=== PATIENT | female | born 1950 | race Caucasian/White ===

== ENCOUNTER → 2017-07-31 | Outpatient (CLI) | payer MEDICARE, OTHER ==
[~2017-07-31] MED LIST: ASPIRIN325 PO; CALCIUM 600 +1 EA11 PO; CENTRUM SILVER1 EAC4 PO; COLON HEALTH PROBIOT; FISH OIL 1,001000 M1 PO; LISINOPRIL-HCT1 EAC1 PO; METOPROLOL TAR100 MG PO; NORVASC2.5 MG PO; NORVASC5 M1 PO; PAXIL10 MG; POTASSIUM99 M1 PO; VITAMIN C500 M1 PO
== END ==
LOC: M.RAD 12:06
DX: Z12.31 Encounter for screening mammogram for malignant neoplasm of breast (principal); I10 Essential (primary) hypertension

== ENCOUNTER → 2017-08-08 | Outpatient (CLI) | payer MEDICARE, OTHER | LOC: M.ULTRA 12:56 | DX: N60.01 Solitary cyst of right breast (principal) ==

== ENCOUNTER → 2018-10-08 | Outpatient (CLI) | payer MEDICARE, OTHER | LOC: M.RAD 09-16 13:16 | DX: Z13.820 Encounter for screening for osteoporosis (principal); Z12.31 Encounter for screening mammogram for malignant neoplasm of breast; E28.39 Other primary ovarian failure; F17.290 Nicotine dependence, other tobacco product, uncomplicated ==

== ENCOUNTER → 2020-04-27 | Outpatient (CLI) | payer MEDICARE, OTHER | LOC: M.RAD 13:14 | PROVIDERS: ATTEND Hospitalist | DX: Z12.31 Encounter for screening mammogram for malignant neoplasm of breast (principal) ==

== ENCOUNTER 2020-08-02 09:47 | Inpatient (IN) | payer MEDICARE, OTHER ==
[~2020-08-02] VITALS: Ht 167.6 cm; Wt 112.9 kg
[~2020-08-02 09:47] MED LIST changes: -METOPROLOL TAR100 MG PO; +ST. JOSEPH ASPI81 MG PO; +TOPROL XL100 MG PO
[2020-08-02 09:52] VITALS: BP 174/86
[2020-08-02] MEDS ORDERED: METFORMIN HCL500 MG PO (09:59)
[2020-08-02] MEDS ORDERED: CRESTOR5 MG PO (09:59)
[2020-08-02 10:26] LABS: ABSOLUTE BASOPHILS 0.1 thou/uL (0.0-0.2); ABSOLUTE EOSINOPHILS 0.1 thou/uL (0.0-0.7); ABSOLUTE LYMPHOCYTES 1.6 thou/uL (0.8-5.3); ABSOLUTE MONOCYTES 0.4 thou/uL (0.0-1.2); ABSOLUTE NEUTROPHILS 6.1 thou/uL (1.6-8.1); BASOPHILS 0.8 %; EOSINOPHILS 1.7 %; HEMATOCRIT 43.2 % (37.0-47.0); HEMOGLOBIN 14.3 gm/dL (12.0-15.0); LYMPHOCYTES 19.2 %; MCH 28.3 pg (26.0-34.0); MCV 85.6 fL (80.0-100.0); MONOCYTES 5.1 %; MPV 7.5 fl. (7.2-11.1); NUCLEATED RBCS 0 /100WBC; PLATELET COUNT* 300 thou/uL (150-400); POLYS 73.2 %; RBC 5.04 mil/uL (4.20-5.00); RDW-CV 13.9 % (10.5-14.5); WBC 8.4 thou/uL (4.0-11.0)
[2020-08-02 10:36] LABS: CALCIUM 9.3 mg/dL (8.5-10.1); CREATININE 0.8 mg/dL (0.6-1.3)
[2020-08-02 10:44] LABS: APTT 25.5 Seconds (25.0-31.3); PROTIME 10.6 Seconds (9.20-11.50)
[2020-08-02 10:49] LABS: ALBUMIN 3.4 g/dL (3.4-5.0); MAGNESIUM 1.8 mg/dL (1.8-2.4); TOTAL BILIRUBIN 0.6 mg/dL (<0.1-1.0); TOTAL PROTEIN 8.6 g/dL (6.4-8.2)
[2020-08-02] MEDS ORDERED: CRANBERRY 6,001 EACH PO (13:36)
[2020-08-02] MEDS ORDERED: CALCIUM 500 +1 EACH PO (13:36)
[2020-08-02] MEDS ORDERED: ACETAMINOPHEN500 M1 PO (13:37)
[2020-08-02] MEDS ORDERED: TUMS200 MG PO (13:40)
[2020-08-02 14:21] VITALS: BP 173/70
[2020-08-02 15:03] VITALS: BP 185/74
[2020-08-02 15:24] VITALS: BP 169/71
--- NOTE | 2020-08-02 16:23 | 2DMMODE ---
[place] [id number] 2 D/M-MODE ECHOCARDIOGRAM Name: JOHNSON MONTEROLOTRADHA HOLDER Room: [address] IN [facility]#: [id number] Admission: 08/02/20 Attend Phys: Andres Lowery Discharge: Date of : 54 Date of Service: 08/02/20 1623 Report #: [id number] THIS REPORT FOR: cc: Vanna Smith MD, Jayne Lora MD Liston, Michael J. MD [facility] ~ APPROVED REPORT Study performed: 08/02/2020 15:52:17 EXAM: Comprehensive 2D, Doppler, and color-flow Echocardiogram Patient Location: In-Patient Room #: 228 Status: routine BSA: 2.12 HR: 83 bpm BP: 185/74 mmHg Rhythm: NSR Other Information Study Quality: Good Indications Dyspnea 2D Dimensions IVSd: 13.62 (7-11mm) LVOT Diam: 19.77 (18-24mm) LVDd: 40.80 mm PWd: 13.51 (7-11mm) Ascending Ao: 33.63 (22-36mm) LVDs: 18.88 (25-40mm) Aortic Root: 36.14 mm Volumes Left Atrial Volume (Systole) LA ESV Index: 27.90 mL/m2 Aortic Valve AoV Peak Usman.: 1.55 m/s AO Peak Gr.: 9.64 mmHg LVOT Max P.22 mmHg AO Mean Gr.: 6.22 mmHg LVOT Mean P.18 mmHg LVOT Max V: 1.52 m/s AO V2 VTI: 32.71 cm LVOT Mean V: 1.07 m/s SETH (VTI): 3.26 cm2 LVOT V1 VTI: 34.73 [place] [id number] 2 D/M-MODE ECHOCARDIOGRAM Name: PEARL MONTERO Room: [address] IN ..#: [id number] Admission: 08/02/20 Attend Phys: Andres Lowery Discharge: Date of : 54 Date of Service: 08/02/20 1623 Report #: [id number] Mitral Valve E/A Ratio: 0.64 MV Decel. Time: 163.68 ms MV E Max Usman.: 0.99 m/s MV PHT: 47.47 ms MVA (PHT): 4.63 cm2 TDI E/Lateral E': 9.00 Lateral E' Usman.: 0.11 m/s Pulmonary Valve PV Peak Usman.: 1.01 m/s PV Peak Gr.: 4.07 mmHg Left Ventricle The left ventricle is normal size. There is normal LV segmental wall motion. Mild concentric left ventricular hypertrophy. Left ventricular systolic function is normal. LVEF is 65-70%. Grade I - abnormal relaxation pattern. Right Ventricle The right ventricle is normal size. The right ventricular systolic function is normal. Atria Left atrium is mildly dilated. The right atrium size is normal. Aortic Valve The aortic valve is normal in structure. No aortic regurgitation is present. There is no aortic valvular stenosis. Mitral Valve There is mitral annular calcification. There is no mitral valve regurgitation noted. No evidence of mitral valve stenosis. Tricuspid Valve The tricuspid valve is normal in structure. Trace tricuspid regurgitation. Unable to assess PA pressure. Pulmonic Valve The pulmonary valve is normal in structure. There is no pulmonic valvular regurgitation. Great Vessels The aortic root is normal in size. IVC [place] [id number] 2 D/M-MODE ECHOCARDIOGRAM Name: PEARL MONTERO Room: [address] IN [facility]#: [id number] Admission: 08/02/20 Attend Phys: Andres Lowery Discharge: Date of : 54 Date of Service: 08/02/20 1623 Report #: [id number] collapses >50% with inspiration. Pericardium There is no pericardial effusion. <Conclusion> The left ventricle is normal size. Mild concentric left ventricular hypertrophy. Left ventricular systolic function is normal. LVEF is 65-70%. Grade I - abnormal relaxation pattern. There is normal LV segmental wall motion. Left atrium is mildly dilated. Trace tricuspid regurgitation. IVC is normal in size and collapses >50% with inspiration. <ELECTRONICALLY SIGNED> By: Josue Rodriguez MD, FACC 08/02/20 1623 1623 1623 Josue Rodriguez MD, FACC /INF
[2020-08-02 17:08] VITALS: BP 176/77
--- NOTE | 2020-08-02 18:02 | NUR ---
PT ADMITTED TO ROOM 228 VIA CART FROM ED AT APPROXIMATELY 1430. REPORT RECEIVED FROM JONNY TINOCO. PT ORIENTED TO ROOM AND CALL LIGHT. ADMISSION ASSESSMENT AND HISTORY CHARTED. SEPSIS NEGATIVE. HOME MEDICATIONS RECONCILED. A&0X4, DENIES ANY PAIN AT THIS TIME. PT ON 4L NC SAT LOW 90'S. PT COMPLAINS OF SHORTNESS OF BREATH AT REST AND WITH EXERTION. PT UP AD ROWAN IN ROOM. AND SON AT BEDSIDE AND UPDATED ON CURRENT PLAN OF CARE. TRACING SR ON THE WEB PAGE DESIGNER. SPUTUM NEEDS TO BE OBTAINED. MEDS PER JUN. PT REPOSITIONS SELF. HOURLY ROUNDING OBSERVED. BED IN LOW POSITION. CALL LIGHT WITHIN REACH. WILL CONTINUE PLAN OF CARE.
[2020-08-02 20:00] VITALS: BP 150/92
[2020-08-03 00:45] VITALS: BP 142/74
[2020-08-03 04:37] LABS: HEMATOCRIT 43.5 % (37.0-47.0); HEMOGLOBIN 14.2 gm/dL (12.0-15.0); MCH 27.9 pg (26.0-34.0); MCHC 32.7 g/dL (28.0-37.0); MCV 85.4 fL (80.0-100.0); NUCLEATED RBCS 0 /100WBC; PLATELET COUNT* 333 thou/uL (150-400); RDW-CV 13.8 % (10.5-14.5); WBC 12.1 thou/uL (4.0-11.0)
[2020-08-03 04:57] LABS: ALBUMIN 3.3 g/dL (3.4-5.0); CALCIUM 9.8 mg/dL (8.5-10.1); CREATININE 0.9 mg/dL (0.6-1.3); MAGNESIUM 2.3 mg/dL (1.8-2.4); POTASSIUM 4.6 mmol/L (3.5-5.1); TOTAL BILIRUBIN 0.5 mg/dL (<0.1-1.0); TOTAL PROTEIN 7.6 g/dL (6.4-8.2)
[2020-08-03 05:46] VITALS: BP 181/77
[2020-08-03 07:07] LABS: ABSOLUTE LYMPHOCYTES 0.8 thou/uL (0.8-5.3); ABSOLUTE NEUTROPHILS 11.3 thou/uL (1.6-8.1); PLATELET ESTIMATE ADEQUATE
[2020-08-03 08:00] VITALS: BP 194/74
--- NOTE | 2020-08-03 10:54 | NUR ---
CM COMPLETED THE INITIAL ASSESSMENT TO DISCUSS HOME SITUATION AND D/C PLAN.PT LIVES HOME W/SPOUSE. PT HAS NO DMES. PT IS CURRENTLY ON 5L OF 02 NC. PT HAS NO HOME O2. PT IS ACTIVE AND INDEPENDENT WITH CARES. PT DENIES HX WITH HH AND SNF. CM TO CONT TO FOLLOW TO ASSESS IF THERE WILL BE ANY O2 NEEDS
[2020-08-03 12:33] VITALS: BP 145/65
[2020-08-03 12:54] LABS: CALCIUM 9.1 mg/dL (8.5-10.1); CREATININE 0.9 mg/dL (0.6-1.3); MAGNESIUM 2.5 mg/dL (1.8-2.4); POTASSIUM 3.7 mmol/L (3.5-5.1)
[2020-08-03 13:37] LABS: HEMOGLOBIN 15.4 gm/dL (12.0-15.0); MCH 28.1 pg (26.0-34.0); MCHC 32.7 g/dL (28.0-37.0); MPV 7.8 fl. (7.2-11.1); RBC 5.47 mil/uL (4.20-5.00); WBC 18.2 thou/uL (4.0-11.0)
[2020-08-03 13:57] LABS: CALCIUM 9.7 mg/dL (8.5-10.1); CREATININE 1.1 mg/dL (0.6-1.3); PHOSPHORUS* 3.4 mg/dL (2.5-4.9)
--- NOTE | 2020-08-03 14:11 | EKG ---
[place] [address] ELECTROCARDIOGRAM REPORT Name: PEARL MONTERO Room: [address] ADM IN .R.#: [id number] Admission: 08/02/20 Attend Phys: Andres Lowery Discharge: Date of : 54 Date of Service: 08/02/20 1003 Report #: [id number] THIS REPORT FOR: //name// [facility] ED Test Date: 2020-08-02 Test Time: 10:03:33 Pat Name: PEARL MONTERO Department: Room: [facility] Gender: F Campaign Coordinator: wilian : 1950 Requested By: Demar Moser Order Number: [id number] MD: Josue Rodriguez Measurements Intervals [place] Rate: 87 P: -22 CO: 208 QRS: -26 QRSD: 108 T: 45 QT: 394 QTc: 474 Interpretive Statements Sinus rhythm Borderline left axis deviation Probable anteroseptal infarct, old Compared to ECG 06/13/2014 19:02:29 Myocardial infarct finding now present Sinus tachycardia no longer present Electronically Signed On 08-03-2020 14:10:54 CDT by Josue Rodriguez [email or web address] <ELECTRONICALLY SIGNED> By: Josue Rodriguez MD, FACC 08/03/20 1410 1003 1003 Josue Rodriguez MD, FACC /EPI
--- NOTE | 2020-08-03 14:44 | CON ---
[address] [address] CONSULTATION Name: PEARL MONTERO Room: [address] IN M.R.#: [id number] Admission: 08/02/20 Attend Phys: Alan Fiore Discharge: Date of : 54 Report #: [id number] THIS REPORT FOR: cc: Vanna Smith MD, Jayne Lora MD Pervez, Adeel MD ~ DATE OF SERVICE: 08/02/2020 REQUESTING PHYSICIAN: Dr. Lowery. INDICATION FOR CONSULTATION: Shortness of breath. HISTORY OF PRESENT ILLNESS: This is a 70-year-old female who has an extensive history of smoking. She says it has been several years since she discontinued. She has not previously been diagnosed with COPD. The patient, however, does state that she has a longstanding history of nasal allergies and also does have a long-standing history of a dry cough. The patient said that she is here because since Sunday she has been having increasing shortness of breath. Shortness of breath is more on exertion, but present at rest as well. She has had an increase in cough, but there is not much sputum. There is no chest pain. She denies any upper respiratory complaints. She does have some swelling of lower extremities. She does not have calf pain. She is not complaining of heartburn at this time. She does say that she has disturbed sleep at night as well as sleepiness during the day. She usually sleeps on her sides. REVIEW OF SYSTEMS: She answers to the negative for 12 questions for review of systems except as mentioned above. PAST MEDICAL HISTORY: Allergic rhinitis, hypertension, hyperlipidemia. She has had Moderna COVID-19 vaccine. PAST SURGICAL HISTORY: Cervical polyp removed, tonsillectomy. SOCIAL HISTORY: Extensive history of smoking, has now discontinued. No known history of heavy alcohol use or illegal drug use. CURRENT MEDICATIONS: List in [employer] reviewed. HOME MEDICATIONS: List in [employer] reviewed. FAMILY HISTORY: No pertinent family history known at this time. PHYSICAL EXAMINATION: GENERAL: Alert, [place] [address] CONSULTATION Name: PEARL MONTERO Room: [address] IN [facility]#: [id number] Admission: 08/02/20 Attend Phys: Alan Fiore Discharge: Date of : 54 Report #: [id number] VITAL SIGNS: Has a pulse of 84 and a blood pressure elevated to 173/70, saturating 93%. She is on 4 liters nasal cannula, respiratory rate is mildly elevated to 20. She is afebrile with a temperature of 36.4. Body mass index is elevated to 37.1. HEENT: Head is normocephalic and atraumatic. Pupils are equal and reactive. There is no throat erythema. Airway is Mallampati 3. NECK: Does not show raised JVP, asymmetry, mass or palpable lymph nodes. CHEST: Symmetrical expansion on inspection and palpation. On auscultation, breath sounds are bilaterally equal, decreased, expirations are prolonged. I do not hear any added sounds. HEART: Regular, no murmur. ABDOMEN: Soft and nontender. EXTREMITIES: Lower extremities 1+ edema, no calf tenderness. There are varicose veins noted on the left leg. SKIN: Dry and intact. NEUROLOGICAL: Moves all extremities bilaterally equally and spontaneously with no focal deficit identified. LABORATORY DATA: The patient's CTA chest is reviewed. In summary, it does show a mass of about 5.8 cm sand at least 1 smaller nodule as well. I suspect there are some postobstructive infiltrates. There are no pulmonary emboli identified. The patient's lab work is in [employer] and this is reviewed including COVID-19 screen negative. ASSESSMENT AND PLAN: 1. Lung mass This is suspicious of a malignancy. Considering the patient's sodium is decreased small cell carcinoma of the lung is the first possibility to consider; however, there are certainly other etiologies as well. The primary service is already consulted Interventional Radiology for a CT-guided biopsy and agree with the same. 2. Acute hypoxemic respiratory failure. The patient is saturating 93% on 4 liters nasal cannula. She was 86% on room air earlier. Note that she has previously has not been on supplemental oxygen. We will continue to titrate oxygen. 3. Chronic obstructive pulmonary disease exacerbation. Solu-Medrol and nebulized bronchodilators. 4. Pulmonary infiltrates, I suspect that these may be postobstructive. I will start with ceftriaxone as well as azithromycin. Some cultures and serologies are also ordered. 5. Fluid overload/edema of lower extremity. D-dimer is not elevated. Therefore, thromboembolism appears unlikely. Also, there are no clots noted in the CTA chest. I will, however, do 2D echo. Since the patient received IV dye today, I did not order Lasix now; however, I will plan to order Lasix tomorrow if the BUN and creatinine remain stable. [address] [address] CONSULTATION Name: PEARL MONTERO Room: [address] IN M.R.#: [id number] Admission: 08/02/20 Attend Phys: Alan Fiore Discharge: Date of : 54 Report #: [id number] 6. Hypersomnia/sleep disturbances. I suspect that the patient has underlying obstructive sleep apnea. Evaluation is deferred for now. Plan outpatient sleep study later. 7. Hyperglycemia. Initial blood glucose before she got steroids was elevated to 186, therefore, I will put on an insulin sliding scale. 8. Past medical history of hypertension. 9. Deep vein thrombosis prophylaxis. We will plan is to start a prophylactic dose Lovenox tomorrow. 10. Clostridium difficile prophylaxis, Lactinex. 11. Gastrointestinal prophylaxis. I will give her Protonix while she is on high dose steroid. Thanks for this consultation. <ELECTRONICALLY SIGNED> By: Seth Geronimo MD 08/03/20 1444 1505 [id number] Geronimo MD /nt
[2020-08-03 16:46] VITALS: BP 140/67
--- NOTE | 2020-08-03 18:49 | NUR ---
ASSUMED CARE OF PT AT 0730. PT A&0X4, DENIES ANY PAIN THROUGHOUT SHIFT. PT ON 7L HIGH FLOW NC UPON INITIAL ASSESSMENT- TITRATED TO 4L HIGH FLOW NC SAT MID 90'S. PT HAS SHORTNESS OF BREATH AT REST AND WITH EXERTION. PT UP WITH 1 ASSIST TO BATHROOM. PT HAD CT ABD/PELVIS TODAY-REFER TO RESULTS. TRACING SR/ST ON THE NEGATIVE NOTCHER. ASPIRIN DISCONTINUED FOR BIOPSY. PT AND SON AT BEDSIDE THROUGHOUT SHIFT AND UPDATED ON CURRENT PLAN OF CARE. AM ASSESSMENT CHARTED. MEDICATIONS PER JUN. PT REPOSITIONS SELF. HOURLY ROUNDING OBSERVED. BED IN LOW POSITION. CALL LIGHT WITHIN REACH. WILL CONTINUE PLAN OF CARE.
[2020-08-03 20:00] VITALS: BP 144/71
[2020-08-04 00:03] VITALS: BP 134/81
[2020-08-04 05:19] VITALS: BP 162/68
[2020-08-04 08:00] VITALS: BP 170/76
--- NOTE | 2020-08-04 11:27 | CON ---
[address] [address] CONSULTATION Name: PEARL MONTERO Room: [address] IN .R.#: [id number] Admission: 08/02/20 Attend Phys: Alan Fiore Discharge: Date of : 54 Report #: [id number] THIS REPORT FOR: cc: Vanna Smith MD, Jayne Lora MD Elia, Manana MD ~ DATE OF SERVICE: 08/03/2020 REASON FOR CONSULTATION: Lung mass. REQUESTING PHYSICIAN: Andres Lowery DO HISTORY OF PRESENT ILLNESS: The patient is a pleasant 70-year-old female who is admitted to the hospital with worsening shortness of breath. She states that she started having shortness of breath several days ago. She says that she over exerted herself while mowing the yard. She tried to "rest" on the weekend, but shortness of breath got worse. She presented to Emergency Room with worsening shortness of breath. She had imaging studies done. These showed lung mass. Oncology consult is requested. She is feeling somewhat better. She does not have complaints of fever or chills. Denies hemoptysis. Denies weight loss. Denies headaches. Does not have nausea or vomiting. PAST MEDICAL HISTORY: Significant for: 1. Hypertension. 2. Hyperlipidemia. ALLERGIES: She has seasonal allergies. SOCIAL HISTORY: She has a history of smoking, but quit smoking few years ago. She does not drink alcohol excessively. She lives with her . FAMILY HISTORY: Noncontributory. REVIEW OF SYSTEMS: See above. Other systems reviewed and are negative. Pertinent positives and negatives are listed in HPI. PHYSICAL EXAMINATION: GENERAL: Reveals mildly overweight woman, not in any acute distress. VITAL SIGNS: Blood pressure 194/74, heart rate is 110, temperature 98.4, respirations 22. NECK: Supple. There is no supraclavicular or axillary lymphadenopathy. HEART: Normal S1, S2. LUNGS: Clear. No wheezing. EXTREMITIES: Lower extremities, [place] [address] CONSULTATION Name: PEARL MONTERO Room: [address] IN [facility]#: [id number] Admission: 08/02/20 Attend Phys: Alan Fiore Discharge: Date of : 54 Report #: [id number] SKIN: Does not reveal any rash. MENTAL STATUS: Alert, oriented x 3. LABORATORY DATA: White count 12.1, hemoglobin 14.2, platelets 333, MCV 85.4. Sodium 126, potassium 4.6, chloride 88, BUN 21, bicarbonate 31, creatinine 0.5, total bilirubin 0.4. LFTs normal. CT of chest reviewed, shows large right hilar mass measuring 5.8 x 4.6 x 4.5 cm. This encases the right apical pulmonary artery, which has severely narrowed and also created mass effect until superior vena cava. There is a 6 mm satellite nodule in the anterior right upper lobe. ASSESSMENT AND PLAN: 1. Lung mass. This is concerning for malignancy. Small cell lung cancer is not excluded. I would recommend to proceed with biopsy as soon as possible. The mass is encasing the pulmonary artery and narrowing superior vena cava. If the patient has small cell lung cancer, we will start treatment immediately. 2. Hyponatremia, possibly syndrome of inappropriate antidiuretic hormone. Plan to order urine sodium and osmolality. 3. Hypertension. Defer care to hospitalist. Thank you very much for allowing me to participate in the care of this patient. <ELECTRONICALLY SIGNED> By: Heather Sierra MD 08/04/20 1127 [id number] [id number] Sierra MD /nt
[2020-08-04 11:56] LABS: ABSOLUTE LYMPHOCYTES 0.9 thou/uL (0.8-5.3); ABSOLUTE MONOCYTES 0.6 thou/uL (0.0-1.2); ABSOLUTE NEUTROPHILS 16.1 thou/uL (1.6-8.1); BASOPHILS 0.1 %; HEMATOCRIT 41.6 % (37.0-47.0); HEMOGLOBIN 13.5 gm/dL (12.0-15.0); LYMPHOCYTES 4.9 %; MCHC 32.3 g/dL (28.0-37.0); MCV 86.6 fL (80.0-100.0); MONOCYTES 3.2 %; MPV 7.5 fl. (7.2-11.1); NUCLEATED RBCS 0 /100WBC; PLATELET COUNT* 390 thou/uL (150-400); POLYS 91.8 %; RDW-CV 14.3 % (10.5-14.5); WBC 17.5 thou/uL (4.0-11.0)
[2020-08-04 12:05] LABS: CREATININE 1.2 mg/dL (0.6-1.3); MAGNESIUM 2.3 mg/dL (1.8-2.4); POTASSIUM 4.3 mmol/L (3.5-5.1)
[2020-08-04 12:40] VITALS: BP 146/65
[2020-08-04 13:46] LABS: ALBUMIN 3.3 g/dL (3.4-5.0); CREATININE 1.2 mg/dL (0.6-1.3); POTASSIUM 4.3 mmol/L (3.5-5.1); TOTAL BILIRUBIN 0.3 mg/dL (<0.1-1.0); TOTAL PROTEIN 7.7 g/dL (6.4-8.2)
--- NOTE | 2020-08-04 15:22 | NUR ---
PLAN OF CARE: PLAN FOR PT TO D/C POSSIBLY TOMORROW OR SUNDAY. PT CURRENTLY ON 5L O2 AND WILL LIKELY NEED HOME OXYGEN AT D/C. NO OTHER CM D/C PLANNING NEEDS ANTICIPATED. CM WILL REMAIN AVAILABLE TO ASSIST AND FOLLOW NEEDED.
[2020-08-04 16:13] VITALS: BP 178/71
[2020-08-04 20:00] VITALS: BP 169/75
[2020-08-05 04:13] LABS: ABSOLUTE LYMPHOCYTES 0.8 thou/uL (0.8-5.3); ABSOLUTE MONOCYTES 0.5 thou/uL (0.0-1.2); ABSOLUTE NEUTROPHILS 14.6 thou/uL (1.6-8.1); BASOPHILS 0.2 %; HEMATOCRIT 42.5 % (37.0-47.0); HEMOGLOBIN 13.5 gm/dL (12.0-15.0); LYMPHOCYTES 4.8 %; MCH 27.6 pg (26.0-34.0); MCHC 31.7 g/dL (28.0-37.0); MCV 87.1 fL (80.0-100.0); MONOCYTES 2.9 %; MPV 7.9 fl. (7.2-11.1); NUCLEATED RBCS 0 /100WBC; PLATELET COUNT* 370 thou/uL (150-400); POLYS 92.1 %; RBC 4.87 mil/uL (4.20-5.00); RDW-CV 14.3 % (10.5-14.5); WBC 15.8 thou/uL (4.0-11.0)
[2020-08-05 04:29] LABS: ALBUMIN 3.2 g/dL (3.4-5.0); CALCIUM 9.1 mg/dL (8.5-10.1); CREATININE 0.9 mg/dL (0.6-1.3); MAGNESIUM 2.6 mg/dL (1.8-2.4); POTASSIUM 5.1 mmol/L (3.5-5.1); TOTAL BILIRUBIN 0.3 mg/dL (<0.1-1.0); TOTAL PROTEIN 7.1 g/dL (6.4-8.2)
[2020-08-05 04:52] VITALS: BP 157/62
[2020-08-05 08:00] VITALS: BP 107/69
[2020-08-05 12:09] VITALS: BP 166/69
--- NOTE | 2020-08-05 14:13 | NUR ---
PLAN OF CARE: PT REMAINS TELE STATUS AT THIS TIME. PT CURRENTLY ON 4L O2, AND PLAN TO WEAN PT O2 MUCH POSSIBLE. PT WILL LIKELY NEED HOME O2 AT D/C. CM WILL REMAIN AVAILABLE TO ASSIST AND FOLLOW NEEDED.
[2020-08-05 17:10] VITALS: BP 128/57
[2020-08-05 19:30] VITALS: BP 162/61
[2020-08-06 03:54] LABS: ABSOLUTE LYMPHOCYTES 0.7 thou/uL (0.8-5.3); ABSOLUTE MONOCYTES 0.5 thou/uL (0.0-1.2); ABSOLUTE NEUTROPHILS 11.7 thou/uL (1.6-8.1); BASOPHILS 0.1 %; HEMATOCRIT 42.1 % (37.0-47.0); HEMOGLOBIN 13.4 gm/dL (12.0-15.0); LYMPHOCYTES 5.2 %; MCH 27.8 pg (26.0-34.0); MCHC 31.7 g/dL (28.0-37.0); MCV 87.5 fL (80.0-100.0); MPV 7.7 fl. (7.2-11.1); NUCLEATED RBCS 0 /100WBC; PLATELET COUNT* 341 thou/uL (150-400); POLYS 90.7 %; RBC 4.82 mil/uL (4.20-5.00); RDW-CV 14.4 % (10.5-14.5); WBC 12.9 thou/uL (4.0-11.0)
[2020-08-06 04:05] LABS: CALCIUM 8.8 mg/dL (8.5-10.1); MAGNESIUM 2.8 mg/dL (1.8-2.4); POTASSIUM 4.8 mmol/L (3.5-5.1)
[2020-08-06 04:35] VITALS: BP 138/56
--- NOTE | 2020-08-06 05:33 | NUR ---
ASSUMED CARE OF PT AT 1930. PT A&0X4, DENIES ANY PAIN THROUGHOUT SHIFT. PT ON 5L HIGH FLOW NC. O2 SAT 93%. PT HAS SOA W/ REST AND EXERTION. PT WAS CONCERNED ABOUT TAKING METFORMIN AND SS INSULIN. PT REFUSED SS INSULIN TONIGHT. AT APPROX. 0200 PT C/O SOA. PT O2 SAT 90%. O2 INCREASED TO 7L/MIN. PT HOB INCREASED. PT STATED SHE WAS IN A DEEP SLEEP AND THEN WOKE UP, FELT SOA, AND THEN FELT ANXIOUS. RN AT BEDSIDE TALKING W/ PT. PT REPORTED FEELING LESS ANXIOUS. O2 SAT REMAINED AT 91%. O2 TITRATED DOWN TO 5L/MIN. PT DENIED SOA AT THAT TIME. MEDICATIONS ADMINISTERED PRESCRIBED. HOURLY ROUNDS COMPLETE CHARTED. LABS REVIEWED. CALL LIGHT WITHIN REACH. PT CURRENTLY RESTING IN BED. NO C/O VOICED. WILL CONT. TO MONITOR.
[2020-08-06 08:06] VITALS: BP 126/54
--- NOTE | 2020-08-06 11:59 | NUR ---
PLAN OF CARE: PHYSICIAN INFORMS THAT THE PT WILL LIKELY REMAIN INPT THROUGH THE WEEKEND. PT REMAINS TELE STATUS. PT CURRENTLY ON 5L O2, AND DID NOT HAVE HOME OXYGEN PRIOR TO ADMIT. PT WILL NEED TO HAVE SAT AND EXERCISE TESTING TO DETERMINE NEED FOR HOME OXYGEN PRIOR TO D/C IF UNABLE TO WEAN FROM OXYGEN. NO OTHER CM D/C PLANNING NEEDS ANTICIPATED. CM WILL REMAIN AVAILABLE TO ASSIST AND FOLLOW NEEDED.
[2020-08-06 20:05] VITALS: BP 143/55
[2020-08-06 23:53] VITALS: BP 143/70
[2020-08-07 04:13] VITALS: BP 124/61
[2020-08-07 04:24] LABS: HEMATOCRIT 41.4 % (37.0-47.0); HEMOGLOBIN 13.6 gm/dL (12.0-15.0); MCH 28.4 pg (26.0-34.0); MCHC 32.8 g/dL (28.0-37.0); MCV 86.7 fL (80.0-100.0); MPV 7.5 fl. (7.2-11.1); RBC 4.77 mil/uL (4.20-5.00); RDW-CV 14.5 % (10.5-14.5); WBC 10.3 thou/uL (4.0-11.0)
[2020-08-07 04:46] LABS: ALBUMIN 3.1 g/dL (3.4-5.0); CALCIUM 8.5 mg/dL (8.5-10.1); MAGNESIUM 2.4 mg/dL (1.8-2.4); POTASSIUM 4.8 mmol/L (3.5-5.1); TOTAL BILIRUBIN 0.5 mg/dL (<0.1-1.0)
--- NOTE | 2020-08-07 06:29 | NUR ---
PT AOX4, PLEASANT. UP AD ROWAN TO BSC TO VOID OVERNIGHT. O2 4.5L HFNC SAT 92%. DOES NOT WEAR OXYGEN AT HOME. RT REST AND EX SAT FOR HOME O2 PROCUREMENT. PT DESIRES TO DISCHARGE THIS WEEKEND AND RETURN FOR BIOPSY OF MASS ON SUNDAY. OK WITH PULMONOLOGY. LAC SL IV. HS ACCUCHECK 259, METFORMIN GIVEN. IV SOLUMEDROL GIVEN ORDERED OVERNIGHT. RT TX. TELE ST. USING IS ORDERED. ABLE TO USE CALL LITE AND MAKE NEEDS KNOWN. CALL LITE IN EASY REACH.
[2020-08-07 08:00] VITALS: BP 132/63
[2020-08-07] MEDS ORDERED: CEFDINIR300 MG PO (10:17)
[2020-08-07] MEDS ORDERED: PREDNISONE 10 M10 M1 PO (10:17)
[2020-08-07] MEDS ORDERED: IPRAT-ALBUT 0.5-3 ML INH (10:17)
[2020-08-07 12:00] VITALS: BP 173/54
[2020-08-07 12:13] VITALS: BP 132/63
--- NOTE | 2020-08-07 12:15 | NUR ---
CM INFORMED OF PLAN FOR PT TO D/C HOME TODAY WITH HOME HEALTH, AND HOME OXYGEN. CM SPOKE TO THE PT AND PT DECLINED HH DESPITE EDUCATION AND ENCOURAGEMENT. CM INFORMED RN AND PHYSICIAN OF THIS. PT WILL NEED 2L O2 @ REST AND 4L O2 WITH ACTIVITY PER R.T. CM CALLED AND FAXED PT'S CLINCIAL INFO AND O2 ORDER TO [facility]. [facility] TO DELIVER OXYGEN TANK TO THE HOSPITAL AND OXYGEN SUPPLIES TO THE PT'S HOME. CM WILL REMAIN AVAILABLE TO ASSIST AND FOLLOW NEEDED.
[2020-08-07 12:50] VITALS: BP 132/63
--- NOTE | 2020-08-07 14:30 | NUR ---
DISCHARGE TO HOME WITH OXYGEN 4L WITH EXERCISE and 2L AT REST DISCHARGE INSTRUCTIONS GIVEN AND COPIES GIVEN IV AND HEART MONITOR REMOVED PERSONAL BELONGINGS RETURNED PATIENT ASSISTED OUT VIA WC GOOD CONDITION TO [employer]
== END 2020-08-07 14:00 | disposition home health service (06) | DRG 177 ==
LOC: M.ERS 09:47 → M.2W 10:49 → M.TBA-ER 10:49 → M.2W 14:12
PROVIDERS: Emergency Medicine Emergency Medical Services; Internal Medicine; Internal Medicine Critical Care Medicine; Internal Medicine Hematology & Oncology; ADMIT Internal Medicine; ATTEND Internal Medicine
PROC: 5A0935A Assistance with Respiratory Ventilation, Less than 24 Consecutive Hours, High Flow/Velocity Cannula (ICD-10-PCS; principal; 2020-08-03)
PROC: 5A0935A Assistance with Respiratory Ventilation, Less than 24 Consecutive Hours, High Flow/Velocity Cannula (ICD-10-PCS; 2020-08-04)
PROC: 5A0935A Assistance with Respiratory Ventilation, Less than 24 Consecutive Hours, High Flow/Velocity Cannula (ICD-10-PCS; 2020-08-05)
PROC: 5A0935A Assistance with Respiratory Ventilation, Less than 24 Consecutive Hours, High Flow/Velocity Cannula (ICD-10-PCS; 2020-08-06)
PROC: 5A0935A Assistance with Respiratory Ventilation, Less than 24 Consecutive Hours, High Flow/Velocity Cannula (ICD-10-PCS; 2020-08-07)
DX: J15.6 Pneumonia due to other Gram-negative bacteria (principal); J96.01 Acute respiratory failure with hypoxia; J44.1 Chronic obstructive pulmonary disease with (acute) exacerbation; J44.0 Chronic obstructive pulmonary disease with (acute) lower respiratory infection; E87.1 Hypo-osmolality and hyponatremia; I10 Essential (primary) hypertension; G47.10 Hypersomnia, unspecified; E78.5 Hyperlipidemia, unspecified; M19.90 Unspecified osteoarthritis, unspecified site; K44.9 Diaphragmatic hernia without obstruction or gangrene; E11.65 Type 2 diabetes mellitus with hyperglycemia; J98.4 Other disorders of lung; Z20.822 Contact with and (suspected) exposure to COVID-19; Z87.891 Personal history of nicotine dependence

== ENCOUNTER → 2020-08-10 | Outpatient (CLI) | payer MEDICARE, OTHER ==
[2020-08-10] VITALS (15 sets, daily range): BP systolic 151–181; BP diastolic 48–78
[~2020-08-10] VITALS: Ht 167.6 cm; Wt 107.5 kg
[~2020-08-10] MED LIST changes: +ACETAMINOPHEN500 M1 PO; +ASA81BEC PO; +CALCIUM 500 +1 EACH PO; +CEFDINIR300 MG PO; +CRANBERRY 6,001 EACH PO; +CRESTOR5 MG PO; +IPRAT-ALBUT 0.5-3 ML INH; +METFORMIN HCL500 MG PO; +PREDNISONE 10 M10 M1 PO; +PREDNISONE 20 M20 M1 PO; +TUMS200 MG PO
[2020-08-10 08:45] LABS: HEMATOCRIT 45.6 % (37.0-47.0); HEMOGLOBIN 14.9 gm/dL (12.0-15.0); MCH 27.9 pg (26.0-34.0); MCHC 32.7 g/dL (28.0-37.0); MCV 85.4 fL (80.0-100.0); MPV 7.7 fl. (7.2-11.1); RBC 5.33 mil/uL (4.20-5.00); RDW-CV 13.9 % (10.5-14.5); WBC 14.4 thou/uL (4.0-11.0)
[2020-08-10 09:21] LABS: PROTIME 11.1 Seconds (9.20-11.50)
--- NOTE | 2020-08-12 17:06 | PATH ---
[address] [address] PATHOLOGY RPT PROCEDURE Name: KEREN MONTERO Room: [facility] YEFRI Awais#: [id number] Admission: 08/10/20 Date of : 54 Discharge: Report #: [id number] Path Case #: [id number] LCA Accession Number: [id number] . 01 Material submitted: . lung - RIGHT LUNG MASS BIOPSY. Modifiers: right . 01 Clinical history: . RIGHT HILUM . 02 Diagnosis: Right lung mass, image guided biopsy: - UNDIFFERENTIATED SMALL CELL CARCINOMA. SEE COMMENT. (ALVARO:pit 08/12/2020) QTP 08/12/2020 1031 Local . 02 Comment: Several of the tissue slivers show benign lung parenchyma and several others show infiltrating neoplastic hyperchromatic small malignant cells in association with abundant tumor necrosis. A panel of properly controlled immunohistochemical studies performed on A2 show the neoplastic cells to have the following characteristics, supporting the diagnosis: CD56: Positive Keratin AE1/AE3: Dot-like positive TTF-1: Patchy equivocal positive p40: Negative LCA: Negative, highlights inflammatory cells. . Dr. Heather Sierra notified at approximately 1630 on 08/12/2020. Reviewed with Dr. Andres Feldman on 08/12/2020 who agrees with the diagnosis. (ALVARO:[facility] 08/12/2020) . 02 Electronically signed: . Elmer Sanches MD, Pathologist NPI- [id number] . 01 Gross description: . The specimen is received in formalin, labeled "Keren Montero, right lung mass biopsy" and consists of multiple soft jack tissue cores measuring up to 0.6 x less than 0.1 cm, entirely submitted in A1-A2.([facility]; 08/10/2020) ELBERT/ELBERT 08/12/2020 1025 Local . 02 Pathologist provided ICD-10: C34.91 . 02 CPT . 999795, E27778, L11354 Specimen Comment: A courtesy copy of this report has been sent to [phone] [address] PATHOLOGY RPT PROCEDURE Name: KEREN MONTERO GLORY Room: [facility]#: [id number] Admission: 08/10/20 Date of : 54 Discharge: Report #: [id number] Path Case #: [id number] Specimen Comment: [id number] Specimen Comment: Report sent to / DR DAVILA Performed at: [address] [facility] [address], [place], [place] [id number] MD Andres Feldman MD Phone: [phone] Performed at: 02 [facility] [place] [address] [address], [place], [place] [id number] MD Elmer Sanches MD Phone: [phone]
== END | disposition home or self-care (01) ==
LOC: M.CT 08:09
PROVIDERS: Radiology Diagnostic Radiology; ATTEND Internal Medicine
DX: C34.91 Malignant neoplasm of unspecified part of right bronchus or lung (principal); I10 Essential (primary) hypertension; E11.9 Type 2 diabetes mellitus without complications; J45.909 Unspecified asthma, uncomplicated; Z98.890 Other specified postprocedural states; Z79.899 Other long term (current) drug therapy; Z87.891 Personal history of nicotine dependence; Z88.8 Allergy status to other drugs, medicaments and biological substances

== ENCOUNTER → 2020-08-16 | Outpatient (CLI) | payer MEDICARE, OTHER ==
[2020-08-16 12:28] LABS: CALCIUM 9.1 mg/dL (8.5-10.1); CREATININE 0.8 mg/dL (0.6-1.3); MAGNESIUM 1.8 mg/dL (1.8-2.4); POTASSIUM 4.5 mmol/L (3.5-5.1)
== END ==
LOC: M.LAB 11:52
PROVIDERS: ATTEND Internal Medicine Critical Care Medicine
DX: E87.1 Hypo-osmolality and hyponatremia (principal); E87.70 Fluid overload, unspecified

== ENCOUNTER 2020-11-02 15:23 | Inpatient (IN) | payer MEDICARE, OTHER ==
[~2020-11-02] VITALS: Ht 165.1 cm; Wt 102.5 kg
[2020-11-02 15:30] VITALS: BP 160/69
[2020-11-02 16:12] LABS: RDW-CV 20.4 % (10.5-14.5)
[2020-11-02 16:14] LABS: MCH 32.2 pg (26.0-34.0); MCV 92.1 fL (80.0-100.0); MPV 7.7 fl. (7.2-11.1); NUCLEATED RBCS 0 /100WBC; PLATELET COUNT* 67 thou/uL (150-400); RBC 1.74 mil/uL (4.20-5.00)
[2020-11-02 16:21] LABS: HEMOGLOBIN 5.6 gm/dL (12.0-15.0); WBC 0.4 thou/uL (4.0-11.0)
[2020-11-02 16:33] LABS: ALBUMIN 2.6 g/dL (3.4-5.0); CALCIUM 7.7 mg/dL (8.5-10.1); CREATININE 0.7 mg/dL (0.6-1.3); POTASSIUM 3.7 mmol/L (3.5-5.1); TOTAL BILIRUBIN 0.6 mg/dL (<0.1-1.0); TOTAL PROTEIN 6.7 g/dL (6.4-8.2)
[2020-11-02 16:54] LABS: ABSOLUTE NEUTROPHILS 0.3 thou/uL (1.6-8.1)
[2020-11-02 16:55] LABS: HYPOCHROMASIA 1+; PLATELET ESTIMATE DECREASED
[2020-11-02 16:56] LABS: ANISOCYTOSIS 1+; MICROCYTES Occasional
[2020-11-02 16:57] LABS: LARGE PLATELETS FEW
[2020-11-02 21:37] LABS: HEMOGLOBIN 6.5 gm/dL (12.0-15.0)
[2020-11-02 21:38] LABS: HEMATOCRIT 18.2 % (37.0-47.0)
[2020-11-02 23:39] VITALS: BP 112/64
[2020-11-02] MEDS ORDERED: LISINOPRIL20 MG PO (23:44)
[2020-11-03] VITALS (7 sets, daily range): BP systolic 116–182; BP diastolic 62–96
[2020-11-03 03:59] LABS: BE 3.4 mmol/L (-2 to +3); PO2 88.3 mmHg (75.0-100.0)
[2020-11-03 04:06] LABS: PCO2 70.5 mmHg (35.0-45.0); pH 7.269 (7.340-7.450)
--- NOTE | 2020-11-03 05:54 | NUR ---
ADMISSION DOCUMENTED. BLOOD FINISHED INFUSING. PT MOVED TO HOSPITAL BED. PT STARTED TO DESAT THIS SHIFT, PLACED ON BIPAP, MEDS GIVEN PER E-MAR ORDERED. HOSPITALIST MADE AWARE. PT TOLERATING WELL.
[2020-11-03 06:35] LABS: MCHC 35.1 g/dL (28.0-37.0); MCV 91.3 fL (80.0-100.0); MPV 7.3 fl. (7.2-11.1); NUCLEATED RBCS 1 /100WBC; RDW-CV 19.7 % (10.5-14.5)
[2020-11-03 06:43] LABS: APTT 30.1 Seconds (25.0-31.3); INR 1.1; PROTIME 11.9 Seconds (9.20-11.50)
[2020-11-03 06:45] LABS: HEMATOCRIT 17.3 % (37.0-47.0); HEMOGLOBIN 6.1 gm/dL (12.0-15.0); WBC 0.3 thou/uL (4.0-11.0)
[2020-11-03 06:46] LABS: PLATELET COUNT* 37 thou/uL (150-400)
[2020-11-03 06:53] LABS: ALBUMIN 2.4 g/dL (3.4-5.0); ALKALINE PHOSPHATASE 47 U/L (46-116); ANION GAP 5 mmol/L (7-16); BUN 13 mg/dL (7-18); CALCIUM 7.8 mg/dL (8.5-10.1); CHLORIDE 96 mmol/L (98-107); CHOLESTEROL 99 mg/dL (<200); CO2 33 mmol/L (21-32); CREATININE 0.9 mg/dL (0.6-1.3); GLUCOSE 173 mg/dL (70-99); HDL CHOLESTEROL 48 mg/dL (>40); LDL CHOLESTEROL 37 mg/dL (<100); POTASSIUM 3.7 mmol/L (3.5-5.1); SGOT 22 U/L (15-37); SGPT 23 U/L (30-65); SODIUM 134 mmol/L (136-145); TC:HDL 2.1 Ratio (Not establshd); TOTAL BILIRUBIN 0.6 mg/dL (<0.1-1.0); TOTAL PROTEIN 6.1 g/dL (6.4-8.2); TRIGLYCERIDE 70 mg/dL (<150); VLDL 14 mg/dL (<40)
[2020-11-03 07:02] LABS: SERUM ASSESSMENT Clear
[2020-11-03 07:23] LABS: % SATURATION 32 % (20-39); IRON 79 ug/dL (50-175)
[2020-11-03 07:38] LABS: ESR (SEDRATE) 94 mm/hr (0-30)
[2020-11-03 08:08] LABS: ABSOLUTE LYMPHOCYTES 0.2 thou/uL (0.8-5.3); ABSOLUTE NEUTROPHILS 0.1 thou/uL (1.6-8.1); ANISOCYTOSIS 2+; ATYPICAL LYMPHS 4 %; PLATELET ESTIMATE DECREASED
--- NOTE | 2020-11-03 08:15 | NUR ---
PT HAS HAD STATUS CHANGE FROM TELE TO ICU.
[2020-11-03 08:21] LABS: BE 6.1 mmol/L (-2 to +3); pH 7.339 (7.340-7.450)
[2020-11-03 08:22] LABS: PCO2 61.9 mmHg (35.0-45.0)
--- NOTE | 2020-11-03 08:47 | NUR ---
DR. CROWE SPEAKING WITH PATIENT INFORMING HER OF STATUS CHANGE AND THAT THE PATIENT WILL BE TRANSFERRED TO [facility] TO THEIR ICU THIS FACILITY DOES NOT HAVE ICU BEDS AVAILABLE AT THIS TIME. DR. CROWE STATES SHE WILL CALL THE PATIENT'S SPOUSE TO INFORM HIM OF THESE CHANGES.
--- NOTE | 2020-11-03 09:21 | EKG ---
[place] [address] ELECTROCARDIOGRAM REPORT Name: PEARL MONTERO Room: [place] [address] 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 : 1950 Requested By: Demar Moser Order Number: [id number] MD: Chilango Lane Measurements Intervals [place] Rate: 115 P: 22 AL: 153 QRS: -1 QRSD: 96 T: 28 QT: 313 QTc: 433 Interpretive Statements Sinus tachycardia Minimal ST elevation, lateral leads Compared to ECG 08/02/2020 10:03:33 Sinus rhythm no longer present Electronically Signed On 11-03-2020 9:21:[address] [email or web address] <ELECTRONICALLY SIGNED> By: Chilango Lane MD, [facility] 11/03/[address] MD, [facility] /EPI
--- NOTE | 2020-11-03 10:04 | NUR ---
Admission Assessment Admitted from Home Mental Status upon admission uanble to assess/on bipap and procedure in progress Living Arrangements: House Lives with: or they live with patient -obtained info from [employer] system: Name Phone number María Mathias [phone] [facility] Can patient return to prior living arrangements? Yes Activities of daily living: Independent Currently receiving Cancer treatment, just finished chemo and has 5 radiation tx left Assistive device: No Prior resource use: None Notes: Has O2 at home base is 2L/NC
--- NOTE | 2020-11-03 10:05 | NUR ---
RIGHT BASILIC VESSEL ACCESSED FOR 5 FIJIAN DUAL LUMEN PICC. LINE PRE-TRIMMED TO 41CM AND ADVANCED TO THE ZERO JUAN WITH NO RESISTANCE MET. UPPER ARM CIRCUMFERENCE ABOVE INSERTION SITE= 15". SHERLOCK MAGNET AND 3CG CONFIRMATION OF TIP TERMINATION AT THE CAVOATRIAL JUNCTION APPRECIATED. GUIDWIRE REMOVED, LINE FLUSHED AND INSERTION SITE DRESSED. REPORT GIVEN TO SHANE FULLER.
--- NOTE | 2020-11-03 12:56 | NUR ---
DR. CROWE SPOKE TO DR. JACOBSON, HEMATOLOGY, AND HAS DECIDED TO HOLD THE PATIENT'S 2ND UNIT OF BLOOD FOR AT LEAST 24 HOURS. THE PATIENT CAN HAVE 2ND UNIT OF BLOOD 11/04/20
--- NOTE | 2020-11-03 13:47 | EKG ---
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 : 1950 Requested By: Demar Moser Order Number: [id number] Walker MD: Chilango Lane Measurements Intervals [place] Rate: 117 P: 34 [place]: 136 QRS: -1 QRSD: 95 T: 27 QT: 309 QTc: 431 Interpretive Statements Sinus tachycardia Compared to ECG 11/02/2020 16:03:45 ST (T wave) deviation no longer present Electronically Signed On 11-03-2020 13:47:[address] [email or web address] <ELECTRONICALLY SIGNED> By: Chilango Lane MD, [facility] 11/03/20 [address] MD, [facility] /EPI
--- NOTE | 2020-11-03 15:47 | NUR ---
Contacted by HS and was told that patient needs to transfer to an ICU level of care or tele level of care facility due to staffing and inability to support the patients needs. The following facilities declined acceptance of patient due to capacity limits. [facility] (All 6 facilities) [facility] HS, Dr. Hearn and ED Dir notified. Plan at this time is for patient to remain at [facility].
--- NOTE | 2020-11-03 16:59 | NUR ---
PER DR. CROWE, THE LEVOPHED DRIP WAS STOPPED DUE TO THE PATIENT'S CONSISTENT BLOOD PRESSURE AND MAP LEVEL. THE PATIENT WAS ALSO PLACED BACK ON HIGH FLOW NASAL CANULA AT 15 LITERS OF O2. IF THE PATIENT'S BLOOD PRESSURE REMAINS AT A CONSISTANT LEVEL WELL IF HER O2 SATURATION REMAINS ABOVE 90% ON THE HIGH FLOW NASAL CANULA SHE CAN BE DOWNGRADED TO THE STEP-DOWN UNIT AND WILL NOT NEED ICU STATUS.
[2020-11-03 19:47] LABS: MPV 8.2 fl. (7.2-11.1)
[2020-11-03 19:49] LABS: BASOPHILS 1.1 %; EOSINOPHILS 0.8 %; LYMPHOCYTES 18.1 %; MCH 32.3 pg (26.0-34.0); MCV 92.1 fL (80.0-100.0); NUCLEATED RBCS 1 /100WBC; RDW-CV 19.5 % (10.5-14.5)
[2020-11-03 19:54] LABS: ABSOLUTE LYMPHOCYTES 0.1 thou/uL (0.8-5.3); ABSOLUTE NEUTROPHILS 0.3 thou/uL (1.6-8.1); ALBUMIN 2.2 g/dL (3.4-5.0); CALCIUM 6.7 mg/dL (8.5-10.1); CREATININE 0.8 mg/dL (0.6-1.3); POTASSIUM 3.3 mmol/L (3.5-5.1); TOTAL BILIRUBIN 0.9 mg/dL (<0.1-1.0)
[2020-11-03 19:57] LABS: HEMATOCRIT 17.5 % (37.0-47.0); HEMOGLOBIN 6.1 gm/dL (12.0-15.0); WBC 0.4 thou/uL (4.0-11.0)
[2020-11-03 19:58] LABS: PLATELET COUNT* 23 thou/uL (150-400)
--- NOTE | 2020-11-03 20:01 | NUR ---
BROTHER ALIYA CALLED AND WAS UPDATED WITH PERMISSION OF PATIENT.
[2020-11-03 23:06] LABS: GLYCOHEMOGLOBIN (HGB A1C) 7.5 % (4.8-5.6)
[2020-11-04] VITALS (22 sets, daily range): BP systolic 96–169; BP diastolic 56–83
[2020-11-04 03:44] LABS: BASOPHILS 0.2 %; EOSINOPHILS 0.2 %; LYMPHOCYTES 12.6 %; MCH 32.4 pg (26.0-34.0); MCHC 35.1 g/dL (28.0-37.0); MCV 92.3 fL (80.0-100.0); MONOCYTES 13.5 %; MPV 8.5 fl. (7.2-11.1); NUCLEATED RBCS 0 /100WBC; POLYS 73.5 %; RBC 1.99 mil/uL (4.20-5.00)
[2020-11-04 03:45] LABS: ABSOLUTE LYMPHOCYTES 0.1 thou/uL (0.8-5.3); ABSOLUTE MONOCYTES 0.1 thou/uL (0.0-1.2); ABSOLUTE NEUTROPHILS 0.4 thou/uL (1.6-8.1)
[2020-11-04 03:49] LABS: HEMATOCRIT 18.4 % (37.0-47.0); HEMOGLOBIN 6.5 gm/dL (12.0-15.0); PLATELET COUNT* 19 thou/uL (150-400); WBC 0.5 thou/uL (4.0-11.0)
[2020-11-04 04:10] LABS: ALBUMIN 2.3 g/dL (3.4-5.0); CALCIUM 7.5 mg/dL (8.5-10.1); CREATININE 0.8 mg/dL (0.6-1.3); MAGNESIUM 2.2 mg/dL (1.8-2.4); PHOSPHORUS* 2.2 mg/dL (2.5-4.9); POTASSIUM 3.5 mmol/L (3.5-5.1); TOTAL BILIRUBIN 0.5 mg/dL (<0.1-1.0); TOTAL PROTEIN 6.2 g/dL (6.4-8.2)
--- NOTE | 2020-11-04 05:27 | NUR ---
PT REQUESTED TO BE PLACED ON HIGH FLOW NC 15L; CURRENTLY SATS 93%; WILL CONTINUE TO MONITOR CLOSELY
--- NOTE | 2020-11-04 05:47 | NUR ---
PT TOLERATED HI FLOW NC FOR 20 MINUTES SATS REMAIN 92%, BIPAP REPLACED O2 SAT DROP TO 88%; CALL LIGHT WITHIN REACH WILL CONTINUE TO MONITOR
--- NOTE | 2020-11-04 05:57 | NUR ---
PT PROGRESSED TOWARDS GOALS; PT MONITOR ON ARRIVAL TO THE ICU WAS ST RATE 140'S, CURRENTLY ST RATE 103; BP REMAINS STABLE 120'S/60'S; PT OXYGEN DEMAND DECREASED BIPAP FIO2 DECREASED TO 55%, TOLERDATED SNACK AND DRINKS ON HF NC @ 15L FOR 20 MINUTES; PT ATE 100% OF SNACK; RESTED WELL; SEE REASSESSMENTS FOR FURTHER DETAILS; PT REPOSITIONED PER SELF; DENIED PAIN DURING NIGHT CALL LIGHT WITH IN REACH WILL CONTINUE TO IMPLEMENT PLAN OF CARE.
--- NOTE | 2020-11-04 10:04 | NUR ---
ICU Rounds: Patient currently on Bipap (FiO2 55%). Trials for HHF. Continued Levophed, abx and steroids. Patient on 2L NC at baseline.
[2020-11-04 12:37] LABS: BE 5.2 mmol/L (-2 to +3); PCO2 VENOUS 68.7 mmHg (41.0-51.0); PO2 VENOUS 143.9 mmHg (35.0-45.0)
--- NOTE | 2020-11-04 16:31 | 2DMMODE ---
[place] [address] 2 D/M-MODE ECHOCARDIOGRAM Name: WINSTONPEARL IRENE Room: [address] ADM IN .R.#: [id number] Admission: 11/02/20 Attend Phys: Doris Hearn Discharge: Date of : 54 Date of Service: 11/04/20 1631 Report #: [id number] THIS REPORT FOR: cc: Vanan Smith MD, Jayne Lora MD Liston, Michael J. MD [facility] ~ APPROVED REPORT Study performed: 11/04/2020 15:09:26 EXAM: Comprehensive 2D, Doppler, and color-flow Echocardiogram Patient Location: In-Patient Room #: 006 Status: routine BSA: 2.08 HR: 94 bpm BP: 125/70 mmHg Rhythm: NSR Other Information Study Quality: Good Indications Dyspnea RESP FAILURE 2D Dimensions IVSd: 13.44 (7-11mm) LVOT Diam: 19.95 (18-24mm) LVDd: 45.24 mm PWd: 10.22 (7-11mm) Ascending Ao: 29.62 (22-36mm) LVDs: 25.84 (25-40mm) Aortic Root: 35.59 mm Volumes Left Atrial Volume (Systole) LA ESV Index: 25.70 mL/m2 Aortic Valve AoV Peak Usman.: 1.72 m/s AO Peak Gr.: 11.88 mmHg LVOT Max P.80 mmHg AO Mean Gr.: 5.99 mmHg LVOT Mean P.04 mmHg LVOT Max V: 1.20 m/s AO V2 VTI: 31.67 cm LVOT Mean V: 0.81 m/s SETH (VTI): 2.48 cm2 LVOT V1 VTI: 25.12 [place] [address] 2 D/M-MODE ECHOCARDIOGRAM Name: PEARL MONTERO Room: [address] IN ..#: [id number] Admission: 11/02/20 Attend Phys: Doris Hearn Discharge: Date of : 54 Date of Service: 11/04/20 1631 Report #: [id number] TDI Medial E' Usman.: 0.12 m/s Lateral E' Usman.: 0.13 m/s Pulmonary Valve PV Peak Usman.: 1.04 m/s PV Peak Gr.: 4.34 mmHg Tricuspid Valve RAP Estimate: 5.00 mmHg TR Peak Gr.: 25.98 mmHg RVSP: 30.00 mmHg PA Pressure: 30.00 mmHg Left Ventricle The left ventricle is normal size. There is normal LV segmental wall motion. Mild concentric left ventricular hypertrophy. Left ventricular systolic function is normal. LVEF is 60-65%. Transmitral Doppler flow pattern suggests restrictive physiology. Right Ventricle The right ventricle is normal size. The right ventricular systolic function is normal. Atria Left atrium is mildly dilated. The right atrium size is normal. Aortic Valve The aortic valve is normal in structure. No aortic regurgitation is present. There is no aortic valvular stenosis. Mitral Valve There is mitral annular calcification. Trace mitral regurgitation. No evidence of mitral valve stenosis. Tricuspid Valve The tricuspid valve is normal in structure. Trace tricuspid regurgitation. The RVSP is 30-35 mmHg. Pulmonic Valve The pulmonary valve is normal in structure. There is no pulmonic valvular regurgitation. Great Vessels The aortic root is normal in size. IVC is normal in size and collapses >50% [place] [address] 2 D/M-MODE ECHOCARDIOGRAM Name: PEARL MONTERO Room: [address] IN [facility]#: [id number] Admission: 11/02/20 Attend Phys: Doris Hearn Discharge: Date of : 54 Date of Service: 11/04/20 1631 Report #: [id number] Pericardium There is no pericardial effusion. <Conclusion> The left ventricle is normal size. Mild concentric left ventricular hypertrophy. Left ventricular systolic function is normal. LVEF is 60-65%. Transmitral Doppler flow pattern suggests restrictive physiology. There is normal LV segmental wall motion. Left atrium is mildly dilated. There is mitral annular calcification. Trace mitral regurgitation. Trace tricuspid regurgitation. The RVSP is 30-35 mmHg. IVC is normal in size and collapses >50% with inspiration. <ELECTRONICALLY SIGNED> By: Josue Rodriguez MD, FACC 11/04/20 1631 1631 1631 Josue Rodriguez MD, FACC /INF
--- NOTE | 2020-11-04 22:32 | CON ---
[address] [address] CONSULTATION Name: PEARL MONTERO Room: [address] IN M.R.#: [id number] Admission: 11/02/20 Attend Phys: Alan Parker Discharge: Date of : 54 Report #: [id number] THIS REPORT FOR: cc: Vanna Smith MD, Jayne Lora MD Pervez, Adeel MD ~ DATE OF CONSULTATION: 11/03/2020 REQUESTING PHYSICIAN: Dr. Heanr. INDICATION FOR CONSULTATION: Shortness of breath. HISTORY OF PRESENT ILLNESS: This is a 70-year-old female with past medical history is as mentioned below. I have seen her previously during a previous hospitalization back in July. The patient at that time had a lung mass. I was suspicious that this is a small cell carcinoma. The patient has an extensive history of smoking in the past. She was pending biopsy at that time. 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 She has also been taking medications for COPD since then and does have oxygen at home now. She has been receiving radiation as well as chemotherapy. The patient reports that for the last few days, her respiratory status has been worsening. She has had a cough, not much sputum. No chest pain. No upper respiratory complaints. No swelling of lower extremities or calf pain. The patient had been vaccinated with Moderna COVID-19 vaccine previously. The patient was started as an outpatient with levofloxacin; however, her respiratory status continued to worsen and therefore she eventually came to the hospital here. Upon arrival, she was found to be significantly anemic with a hemoglobin now at 6.1. She in fact has pancytopenia. WBC count is 0.3 and platelet count is 37. The patient had been on BiPAP. She received Lasix as well as fluids earlier. At the time of my evaluation, she was off BiPAP, on 15 liters nasal cannula, saturating in the low 90s, was significantly tachycardic, heart rate around 135. She was maintaining blood pressures. She had earlier received norepinephrine. She was also tachypneic with respiratory rate around 30. She had a high-grade fever earlier at 38.1, but was afebrile at the time of my evaluation. I had requested the patient be placed on BiPAP. REVIEW OF SYSTEMS: The patient's review of systems for 12 points is negative except as mentioned above. 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 [address] CONSULTATION Name: PEARL MONTERO Room: [address] IN .R.#: [id number] Admission: 11/02/20 Attend Phys: Alan Parker Discharge: Date of : 54 Report #: [id number] echocardiogram is from July and shows a left ventricular ejection fraction of 65-70% without elevation in right heart pressures. CURRENT MEDICATIONS: List is in [facility], reviewed. HOME MEDICATIONS: List also in [facility], reviewed. ALLERGIES: REPORTED TO BE ALLERGIC TO PENICILLIN; however, tolerates cephalosporins without problems. SOCIAL HISTORY: Extensive history of smoking in the past, now discontinued. No known history of heavy alcohol use or illegal drug use. FAMILY HISTORY: No pertinent family history. IMMUNIZATION HISTORY: Moderna COVID-19 vaccine x 2. PHYSICAL EXAMINATION: GENERAL: She is alert, awake and oriented. She is anxious, is tachycardic. VITAL SIGNS: Heart rate 135, blood pressure 130/70, saturating 93% on 15 liters oxygen, green high flow nasal cannula. Afebrile with a temperature of 36.6, but high-grade fever earlier up to 38.2. HEENT: Normocephalic and atraumatic. Pupils are equal and reactive. There is no throat erythema. NECK: Does not show raised JVP, asymmetry, mass or lymph nodes. CHEST: Symmetrical expansion on inspection and palpation. There is accessory muscle use. There is tachypnea. Breath sounds are bilaterally equal, but decreased. Expirations are prolonged. I do not hear any added sounds. HEART: Regular, tachycardia noted. ABDOMEN: Soft and nontender. EXTREMITIES: Lower extremities show no edema, no calf tenderness. SKIN: Dry and intact. NEUROLOGIC: Moves all extremities bilaterally equally and spontaneously with no focal deficit identified. LABORATORY DATA: The patient's chest x-ray from yesterday as well as today is reviewed. There are previous changes consistent with small cell carcinoma. There is an infiltrate at the right lung base. The patient may also have mild increase in pulmonary vascular congestion. The rest of the labs are significant for significant anemia in [facility], reviewed. Potassium is borderline normal at 3.7, but magnesium is very low. I added magnesium to this morning's lab at 1.1. Arterial blood gas is consistent with acute on chronic hypercarbic respiratory failure in [facility], reviewed. There likely is a component of [place] [address] CONSULTATION Name: PEARL MONTERO Room: [address] IN [facility]#: [id number] Admission: 11/02/20 Attend Phys: Alan Parker Discharge: Date of : 54 Report #: [id number] ASSESSMENT AND PLAN: 1. Acute on chronic hypercarbic respiratory failure. For now, I recommended placing the patient back on BiPAP. We will follow. If her respiratory status improves, then she could be taken off BiPAP when awake. Will need to be on BiPAP for now while asleep. I hope, we are able to avoid endotracheal intubation. Once she is in the ICU, I may consider placing her on a Precedex drip. Recommend verifying code status. 2. Chronic obstructive pulmonary disease exacerbation. We will give her Solu-Medrol. Considering significant tachycardia, switched over nebulized bronchodilators to Xopenex. We will follow. 3. Pulmonary infiltrate/possible sepsis/severe leukopenia. Agree with cefepime and change the dose to 2 grams q. 12 hours. She is also on Levaquin, for now we will also continue. Pending further evaluation, we will give her vancomycin as well. I would like to stabilize her first down the line, possibly tomorrow I will consider obtaining a CT of the chest, abdomen and pelvis, most likely without contrast. 4. Small cell carcinoma of the lung. See discussion above. 5. Pancytopenia. I understand there is some suspicion that she may have had a reaction to packed RBCs yesterday. I still recommend transfusing her to maintain hemoglobin to at least 7. I would defer to the Hematology service regarding whether hemoglobin is kept higher. I would also defer to the Hematology service regarding whether platelets are transfused at some point. Once she has received more packed RBCs, I will plan to repeat labs and see where we stand. 6. History of hypertension/mild fluid overload. We did go ahead and gave her a dose of Lasix. After she has received packed RBCs, I may consider giving her more. I understand she was hypotensive earlier and received norepinephrine. Blood pressure is at the normal range right now. For now, I discontinued her antihypertensive medications. Recommend restarting whenever her blood pressure is elevated again. 7. Diabetes/hyperglycemia. 8. Gastrointestinal prophylaxis, Protonix. 9. Clostridium difficile prophylaxis. We will hold off on a probiotic considering severe leukopenia. 10. Deep venous thrombosis prophylaxis. Recommend SCDs. Did not order Lovenox at this time due to severe thrombocytopenia. The patient is [place] [address] CONSULTATION Name: PEARL MONTERO Room: [address] IN [facility]#: [id number] Admission: 11/02/20 Attend Phys: Alan Parker Discharge: Date of : 54 Report #: [id number] Total time spent providing critical care to this patient today is 42 minutes. <ELECTRONICALLY SIGNED> By: Seth Geronimo MD 11/04/20 2232 1533 [id number] teresa Martinez
[2020-11-05] VITALS (19 sets, daily range): BP systolic 119–168; BP diastolic 59–87
[2020-11-05 04:44] LABS: MPV 8.7 fl. (7.2-11.1); RBC 2.15 mil/uL (4.20-5.00)
[2020-11-05 04:46] LABS: BASOPHILS 3.8 %; EOSINOPHILS 0.2 %; LYMPHOCYTES 24.4 %; MCH 32.4 pg (26.0-34.0); MCHC 35.7 g/dL (28.0-37.0); MCV 90.8 fL (80.0-100.0); MONOCYTES 17.9 %; NUCLEATED RBCS 1 /100WBC; POLYS 53.7 %; RDW-CV 17.8 % (10.5-14.5)
[2020-11-05 05:21] LABS: ABSOLUTE LYMPHOCYTES 0.1 thou/uL (0.8-5.3); ABSOLUTE MONOCYTES 0.1 thou/uL (0.0-1.2); ABSOLUTE NEUTROPHILS 0.2 thou/uL (1.6-8.1); ALBUMIN 2.1 g/dL (3.4-5.0); CALCIUM 7.2 mg/dL (8.5-10.1); CREATININE 0.9 mg/dL (0.6-1.3); MAGNESIUM 1.6 mg/dL (1.8-2.4); POTASSIUM 3.5 mmol/L (3.5-5.1); TOTAL BILIRUBIN 0.7 mg/dL (<0.1-1.0); TOTAL PROTEIN 5.4 g/dL (6.4-8.2)
[2020-11-05 05:23] LABS: HEMATOCRIT 19.5 % (37.0-47.0); PLATELET COUNT* 14 thou/uL (150-400); WBC 0.4 thou/uL (4.0-11.0)
[2020-11-05 11:54] LABS: BE 9.5 mmol/L (-2 to +3); PCO2 VENOUS 64.5 mmHg (41.0-51.0); PO2 VENOUS 80.8 mmHg (35.0-45.0)
--- NOTE | 2020-11-05 12:16 | NUR ---
ICU Rounds: Patient on HF as tolerated. Currently on Bipap (FiO2 55%). Per Leyla, patient to transfer out of ICU to tele today. Reverse iso precautions in place. Patient to stay through the weekend. Therapies to see patient over the weekend. Patient has adequate support at home so no anticpated needs noted at this time. 2L O2 at home (baseline).
[2020-11-05 22:00] LABS: HEMATOCRIT 21.8 % (37.0-47.0); HEMOGLOBIN 7.7 gm/dL (12.0-15.0); MCH 32.4 pg (26.0-34.0); MCHC 35.4 g/dL (28.0-37.0); MCV 91.5 fL (80.0-100.0); MPV 8.8 fl. (7.2-11.1); RBC 2.38 mil/uL (4.20-5.00)
[2020-11-05 22:02] LABS: WBC 0.9 thou/uL (4.0-11.0)
[2020-11-05 22:17] LABS: CALCIUM 7.9 mg/dL (8.5-10.1); CREATININE 0.9 mg/dL (0.6-1.3); POTASSIUM 3.1 mmol/L (3.5-5.1)
--- NOTE | 2020-11-05 22:49 | NUR ---
2245 PT TO RM 209 IN STABLE CONDITION ON 15L HFNC. ALL BELONGINGS INCLUDING GLASSES AND PHONE WITH PT. NO C/O OF PAIN OR SOA AT TIME OF TRANSFER.
--- NOTE | 2020-11-06 00:33 | NUR ---
2300 ALERT AND ORIENTED X 4 FEMALE PATIENT RECEIVED IN TRANSFER BY BED FROM ICU IN STABLE CONDITION. CGA ASSIST TO STAND AND TAKE A FEW STEPS TO NEW BED. NO CHANGE IN PREVIOUS ASSESSMENT OR VITAL SIGNS. ORIENTED TO BED, ROOM AND ROUTINES. FALL PRECAUTIONS IN PLACE. MEDICATIONS PROVIDED ORDERED. BIPAP FOR HS AT BEDSIDE FOR RT. PUREWICK PLACED AT PATIENT REQUEST. CONTINUE TO MONITOR.
--- NOTE | 2020-11-06 04:36 | NUR ---
PATIENT HAS REMAINED ALERT AND ORIENTED X 4 THROUGHOUT THE SHIFT AND RESTING QUIETLY ON HOURLY ROUNDS. MEDS PER ORDER. O2 AT 15L/MIN BY HI-FLOW CANNULA. PER RT PATIENT REFUSED BIPAP TONIGHT AFTER ARRIVING TO UNIT. O2 SATS LOW 90'S. EFFECTIVE RESULTS FROM TYLENOL PROVIDED FOR HEADACHE. REQUESTED PURE-WICK OVERNIGHT FOR STRESS INCONT. FALL PRECAUTIONS IN PLACE. CONTINUE TO MONITOR.
[2020-11-06 04:40] VITALS: BP 168/83
--- NOTE | 2020-11-06 06:01 | NUR ---
2230-PT REFUSED BIPAP. ENCOURAGED AND EDUCATED PT.
[2020-11-06 06:40] LABS: BASOPHILS 0.3 %; HEMATOCRIT 20.8 % (37.0-47.0); HEMOGLOBIN 7.3 gm/dL (12.0-15.0); LYMPHOCYTES 19.6 %; MCH 32.2 pg (26.0-34.0); MCHC 35.1 g/dL (28.0-37.0); MCV 91.7 fL (80.0-100.0); MONOCYTES 34.9 %; NUCLEATED RBCS 1 /100WBC; POLYS 45.2 %; RBC 2.27 mil/uL (4.20-5.00); RDW-CV 18.1 % (10.5-14.5)
[2020-11-06 06:53] LABS: ALBUMIN 2.9 g/dL (3.4-5.0); CALCIUM 8.1 mg/dL (8.5-10.1); CREATININE 0.8 mg/dL (0.6-1.3); MAGNESIUM 1.8 mg/dL (1.8-2.4); POTASSIUM 3.3 mmol/L (3.5-5.1); TOTAL BILIRUBIN 0.8 mg/dL (<0.1-1.0); TOTAL PROTEIN 6.6 g/dL (6.4-8.2)
[2020-11-06 06:54] LABS: ABSOLUTE LYMPHOCYTES 0.2 thou/uL (0.8-5.3); ABSOLUTE MONOCYTES 0.3 thou/uL (0.0-1.2); ABSOLUTE NEUTROPHILS 0.4 thou/uL (1.6-8.1)
[2020-11-06 06:55] LABS: PLATELET COUNT* 15 thou/uL (150-400)
[2020-11-06 06:56] LABS: WBC 0.8 thou/uL (4.0-11.0)
--- NOTE | 2020-11-06 07:21 | NUR ---
0705 DR. Mayer ACK RECEIPT OF MESSAGE REGARDING CRITICAL LAB OF WBC AND PLATELETS WELL POSITIVE SEPSIS SCREENING.
[2020-11-06 08:27] VITALS: BP 140/78
[2020-11-06 12:00] VITALS: BP 150/79
[2020-11-06 16:00] VITALS: BP 122/71
--- NOTE | 2020-11-06 16:14 | NUR ---
PT CURRENTLY UP IN [facility] SIDE RECLINER RESTING- BUG TRIMMER IN PLACE ORDERED, TRACING SR/ST-RUE DOUBLE LUMEN PICC NOTED C/D/I AND SL- IV ABT GIVEN THIS SHIFT PRESCRIBED-NEUTROPENIC PRECAUTIONS IN PLACE INDICATED-FAIR PO INTAKE NOTED THIS SHIFT WITH MEALS- BS MONIOTRED ORDERED; METFORMIN NOTED TO BE INCREASED TO 1000MG BID AND GLIPIZIED ADDED 5MG DAILY R/T HIGH BS AND PT RESISTANCE TO TAKE INSULIN- O2 SAT THIS AM NOTED TO BE 84-86 ON 15 L HF, HEATED HIGH FLOW PLACED PER RT THIS SHIFT WITH NOTED IMPROVEMENT IN O2 SAT- D-DIMER NOTED TO RESULT ELEVATED THIS SHIFT WITH RESULTS COMMUNICATED TO - K+ NOTED AT 3.3 AND TO BE REPLACED PER PROTOCOL- LASIX 40MG X1 ORDERED AND GIVEN THIS SHIFT PRESCRIBED- PT DENIES ANY C/O PAIN/DISCOMFORT AT THIS TIME- CALL LIGHT AND PERSONAL BELONGINGS WITH IN REACH- PT MAKES NEEDS KNOWN- ALL NEEDS MET AT THIS TIME
[2020-11-06 17:12] LABS: URINE BILIRUBIN NEGATIVE (Negative); URINE BLOOD TRACE (Negative); URINE CLARITY CLEAR; URINE COLOR YELLOW; URINE GLUCOSE-RANDOM NEGATIVE (Negative); URINE KETONES NEGATIVE (Negative); URINE LEUKOCYTES-REFLEX NEGATIVE (Negative); URINE NITRITE-REFLEX NEGATIVE (Negative); URINE PROTEIN 2+ (Negative); URINE UROBILINOGEN 0.2 E.U./dl (0.2-1.0)
[2020-11-06 17:19] LABS: CRYSTALS None Seen /LPF (None Seen); HYALINE CASTS 4-10 Moderate /LPF (None Seen); MUCUS None Seen strn/LPF (None Seen); SQUAMOUS 4-10 Moderate /LPF (0-3)
[2020-11-06 17:20] LABS: BACTERIA-REFLEX 1-9 Few /HPF (None Seen); URINE RBC 0-2 Rare /HPF (0-2); URINE WBC-REFLEX 0-5 Rare /HPF (0-5)
[2020-11-06 20:00] VITALS: BP 144/71
[2020-11-07] VITALS: BP 132/78
[2020-11-07 04:00] VITALS: BP 157/79
--- NOTE | 2020-11-07 05:35 | NUR ---
ASSUMED CARE AT 1915. PATIENT IN CHAIR, ASSISTED TO BED. UP WITH SBA, VOIDS PER BSC. BOTH DOUBLE LUMEN PICC LINES FLUSH WELL, BUT ONLY PURPLE ONE HAS BLOOD RETURN. O2 AT 32 L PER HFNC, TOLERATING WELL. REFUSED HS INSULIN, BUT PHYSICIAN HAS INCREASED HER METFORMIN. SHE STATES SHE DOES NOT TAKE INSULIN AT HOME. EKG SHOWS SR AT 98. NO C/O PAIN. HOURLY ROUNDS CONTINUE. CALL LITE IN REACH.
[2020-11-07 05:57] LABS: HEMATOCRIT 23.5 % (37.0-47.0); HEMOGLOBIN 8.3 gm/dL (12.0-15.0); MCH 32.4 pg (26.0-34.0); MCHC 35.2 g/dL (28.0-37.0); MCV 92.1 fL (80.0-100.0); MPV 9.1 fl. (7.2-11.1); RBC 2.55 mil/uL (4.20-5.00); RDW-CV 18.2 % (10.5-14.5)
[2020-11-07 06:39] LABS: WBC 1.8 thou/uL (4.0-11.0)
[2020-11-07 07:43] LABS: ALBUMIN 2.8 g/dL (3.4-5.0); ALKALINE PHOSPHATASE 45 U/L (46-116); ANION GAP < 0 mmol/L (7-16); BUN 29 mg/dL (7-18); CHLORIDE 99 mmol/L (98-107); CO2 44 mmol/L (21-32); CREATININE 0.7 mg/dL (0.6-1.3); GLUCOSE 177 mg/dL (70-99); MAGNESIUM 1.6 mg/dL (1.8-2.4); POTASSIUM 3.6 mmol/L (3.5-5.1); SGOT 21 U/L (15-37); SGPT 29 U/L (30-65); SODIUM 140 mmol/L (136-145); TOTAL BILIRUBIN 0.8 mg/dL (<0.1-1.0); TOTAL PROTEIN 6.2 g/dL (6.4-8.2)
[2020-11-07 07:58] VITALS: BP 167/82
[2020-11-07 11:45] VITALS: BP 157/69; BP 93/51
[2020-11-07 16:00] VITALS: BP 173/81
--- NOTE | 2020-11-07 16:24 | NUR ---
PT CURRENLTY UP RESTING IN BED BEDN SIDE RECLINER- MENTAL HEALTH COORDINATOR IN PLACE ORDERED, TRACING SR/ST- RUE PICC NOTED C/D/I- IV ABT GIVEN THIS SHIFT PRESCRIBED- FAIR PO INTAKE NOTED THIS SHIFT WITH MEALS, BS MONITORED ORDERED WITH MEDICATIONS PRESCRIBED- CHEST CTA ORDERED AND COMPLETED THIS SHIFT ORDERED, WITH RESULTS NOTED AND COMMUNICATED TO VIA YOU CALL- LASIX 40 MG X1 ORDERED PER PULM AND GIVEN PRESCIBED- HEATED HIGH FLOW DECREASED TO REGULAR HF AT 15L VIA NC PER RT AND SAT STABLE AT THIS TIME AT 92%- PT DENIES ANY C/O PAIN- CALL LIGHT AND PERSONAL BELONGINGS WITH IN REACH- PT MAKES NEEDS KNOWN- ALL NEEDS MET AT THIS TIME
[2020-11-07 20:30] VITALS: BP 145/66
[2020-11-08] VITALS: BP 153/75
[2020-11-08 04:00] VITALS: BP 161/81
[2020-11-08 07:54] VITALS: BP 159/82
[2020-11-08 08:02] LABS: HEMATOCRIT 22.6 % (37.0-47.0); HEMOGLOBIN 7.8 gm/dL (12.0-15.0); MCH 31.7 pg (26.0-34.0); MCHC 34.5 g/dL (28.0-37.0); MCV 91.8 fL (80.0-100.0); MPV 8.5 fl. (7.2-11.1); RBC 2.47 mil/uL (4.20-5.00); RDW-CV 17.6 % (10.5-14.5)
[2020-11-08 08:04] LABS: WBC 9.8 thou/uL (4.0-11.0)
--- NOTE | 2020-11-08 08:07 | NUR ---
PATIENT SLEPT MOST OF THE NIGHT. PATIENT STARTED OUT AT 15L HFNC SATTING 90% BUT THEN DROPPED TO MID 80'S WHEN GETTING UP THE BATHROOM AND WENT BACK ON HEATED HIGHFLOW. IV ANTIBIOITCS WERE GIVEN ORDERED. WILL CONTINUE TO MONITOR.
[2020-11-08 08:09] LABS: PLATELET COUNT* 23 thou/uL (150-400)
[2020-11-08 08:22] LABS: ALBUMIN 2.9 g/dL (3.4-5.0); ALKALINE PHOSPHATASE 63 U/L (46-116); BUN 26 mg/dL (7-18); CALCIUM 8.3 mg/dL (8.5-10.1); CHLORIDE 99 mmol/L (98-107); CREATININE 0.7 mg/dL (0.6-1.3); GLUCOSE 125 mg/dL (70-99); MAGNESIUM 1.4 mg/dL (1.8-2.4); POTASSIUM 3.2 mmol/L (3.5-5.1); SGOT 22 U/L (15-37); SGPT 30 U/L (30-65); SODIUM 144 mmol/L (136-145); TOTAL BILIRUBIN 0.7 mg/dL (<0.1-1.0); TOTAL PROTEIN 6.3 g/dL (6.4-8.2)
[2020-11-08 08:24] LABS: CO2 > 45 mmol/L (21-32)
[2020-11-08 09:37] LABS: NUCLEATED RBCS 0 /100WBC
[2020-11-08 10:18] LABS: ABSOLUTE MONOCYTES 0.8 thou/uL (0.0-1.2); PLATELET ESTIMATE DECREASED
[2020-11-08 10:19] LABS: ANISOCYTOSIS 1+; POIKILOCYTOSIS 1+; POLYCHROMASIA Occasional
[2020-11-08 11:30] LABS: BE 16.4 mmol/L (-2 to +3); PO2 81.8 mmHg (75.0-100.0); pH 7.462 (7.340-7.450)
[2020-11-08 11:32] LABS: PCO2 60.9 mmHg (35.0-45.0)
--- NOTE | 2020-11-08 14:46 | NUR ---
Pulm following. Per Dr, Pt may need to transfer to [facility] tomorrow for Bronch, CM following. Pt remains on o2. Therapies to see.
[2020-11-08 16:00] VITALS: BP 149/76
--- NOTE | 2020-11-08 16:44 | NUR ---
PT CURRENTLY UP IN BED SIDE RECLINER, WATCHING TV- ASTRONAUTICAL ENGINEER IN PLACE ORDERED, TRACING ST- RIGHT UE PICC NOTED C/D/I, IV ABT GIVEN THIS SHIFT PRESCRIBED- CHEST X-RAY RESULTS NOTED THIS AM- ABG NOTED- BIPAP POST LUNCH WITH NAP AND AT HS ENCOURAGED R/T AB-NORMAL ABG AND ELEVATED CARBON DIOXIDE PER THIS SHIFT- GOOD PO INTAKE NOTED THIS SHIFT WITH MEALS, BS MONITORED WITH SSI INSLUIN PRESCRIBED- PD&C BID VEST ORDERED BID THIS SHIFT TO BE COMPLETED PER RT- PT DENIES ANY C/O PAIN- CALL LIGHT AND PERSONAL BELONGINGS WITH IN REACH- PT MAKES NEEDS KNOWN- ALL NEEDS MET AT THIS TIME
[2020-11-08 21:30] VITALS: BP 166/82
[2020-11-09 01:17] VITALS: BP 182/94
[2020-11-09 04:33] VITALS: BP 158/89
[2020-11-09 07:39] LABS: HEMATOCRIT 22.7 % (37.0-47.0); HEMOGLOBIN 7.8 gm/dL (12.0-15.0); MCH 31.8 pg (26.0-34.0); MCHC 34.4 g/dL (28.0-37.0); MCV 92.5 fL (80.0-100.0); MPV 8.5 fl. (7.2-11.1); RBC 2.46 mil/uL (4.20-5.00); RDW-CV 17.5 % (10.5-14.5); WBC 16.4 thou/uL (4.0-11.0)
[2020-11-09 07:45] VITALS: BP 172/90
[2020-11-09 07:58] LABS: ALBUMIN 2.9 g/dL (3.4-5.0); ALKALINE PHOSPHATASE 99 U/L (46-116); BUN 19 mg/dL (7-18); CALCIUM 8.4 mg/dL (8.5-10.1); CHLORIDE 99 mmol/L (98-107); CREATININE 0.6 mg/dL (0.6-1.3); GLUCOSE 99 mg/dL (70-99); MAGNESIUM 1.2 mg/dL (1.8-2.4); SGOT 20 U/L (15-37); SGPT 27 U/L (30-65); SODIUM 143 mmol/L (136-145); TOTAL BILIRUBIN 0.7 mg/dL (<0.1-1.0); TOTAL PROTEIN 6.1 g/dL (6.4-8.2)
[2020-11-09 08:00] LABS: CO2 > 45 mmol/L (21-32)
[2020-11-09 12:00] VITALS: BP 174/88
--- NOTE | 2020-11-09 15:51 | NUR ---
Pt remains hypoxic. Anticipate dc in a few days.
--- NOTE | 2020-11-09 18:32 | NUR ---
ASSUMED CARE OF PT AT 0730. PT A&0X4, DENIES ANY PAIN-PT COMPLAINED OF NAUSEA THIS AM-TREATED WITH PRN ZOFRAN WITH COMPLETE RELIEF. PT TRACING ST ON THE [facility]-RATE IN THE 110'S. ON 15L HIGH FLOW NC SAT MID 90'S. PT WORE BIPAP FOR SHORT INCREMENTS THROUGHOUT SHIFT-20-30 MINS AT A TIME. URINALYSIS OBTAINED AND SENT TO LAB. PT UP WITH 1 ASSIST-WEAKNESS NOTED. MAGNESIUM AND POTASSIUM BEING REPLACED PER ELECTROLYTE PROTOCOL-REFER TO EMAR. PULM AND ID CONSULT IN PLACE. PT RECEIVING IV ABX. CRITICAL LABS CALLED THIS AM- NO NEW ORDERS RECEIVED. UNABLE TO TITRATE OXYGEN THIS AM. PT UP TO CHAIR FOR MEALS-TOLERATED WELL. AM ASSESSMENT CHARTED. MEDICATIONS PER JUN. PT REPOSITIONS SELF WITH REMINDERS. HOURLY ROUNDING OBSERVED. BED IN LOW POSITION. BED ALARM IN PLACE. FALL PRECAUTIONS IN PLACE. CALL LIGHT WITHIN REACH. WILL CONTINUE PLAN OF CARE.
[2020-11-09 20:30] VITALS: BP 140/75
[2020-11-10] VITALS (7 sets, daily range): BP systolic 122–1333; BP diastolic 71–95
[2020-11-10 06:07] LABS: ABSOLUTE BASOPHILS 0.1 thou/uL (0.0-0.2); ABSOLUTE LYMPHOCYTES 1.1 thou/uL (0.8-5.3); BASOPHILS 0.4 %; HEMATOCRIT 21.8 % (37.0-47.0); HEMOGLOBIN 7.4 gm/dL (12.0-15.0); MCH 31.8 pg (26.0-34.0); MCV 93.5 fL (80.0-100.0); MONOCYTES 6.7 %; MPV 8.8 fl. (7.2-11.1); NUCLEATED RBCS 0 /100WBC; POLYS 85.9 %; RBC 2.33 mil/uL (4.20-5.00); RDW-CV 18.2 % (10.5-14.5); WBC 15.2 thou/uL (4.0-11.0)
[2020-11-10 06:12] LABS: PLATELET COUNT* 33 thou/uL (150-400)
[2020-11-10 06:23] LABS: ALBUMIN 2.7 g/dL (3.4-5.0); ALKALINE PHOSPHATASE 106 U/L (46-116); ANION GAP < 0 mmol/L (7-16); BUN 22 mg/dL (7-18); CALCIUM 8.6 mg/dL (8.5-10.1); CHLORIDE 103 mmol/L (98-107); CO2 43 mmol/L (21-32); CREATININE 0.7 mg/dL (0.6-1.3); GLUCOSE 94 mg/dL (70-99); SGOT 17 U/L (15-37); SGPT 26 U/L (30-65); SODIUM 144 mmol/L (136-145); TOTAL BILIRUBIN 0.5 mg/dL (<0.1-1.0); TOTAL PROTEIN 5.8 g/dL (6.4-8.2)
[2020-11-10 06:24] LABS: POTASSIUM 4.2 mmol/L (3.5-5.1)
--- NOTE | 2020-11-10 06:29 | NUR ---
PAGED PROVIDER FOR PT INCREASED BP. AWAITING CALL BACK.
--- NOTE | 2020-11-10 07:40 | NUR ---
ASSUMED PT CARE AT 1915. NURSING ASSESSMENT COMPLETED AT START OF SHIFT. SR/ST ON INSPECTOR PLUMBING. PT CONTINUES ON 10L HF NC. PT VOICED NO CONCERNS. CALL LIGTH WITHIN REACH.
--- NOTE | 2020-11-10 12:31 | NUR ---
Pt remains on 10L of o2, continue to wean. Cell counts improving. Anticipate dc in a few days. ?HH at dc, CM following.
--- NOTE | 2020-11-10 18:34 | NUR ---
PT A&OX4, HR ST/SR, ON 10 L HFNC. PICC DRESSING CHANGED TODAY AND SHE HAD A MEDIUM BM.
[2020-11-11] VITALS: BP 163/83
[2020-11-11 04:00] VITALS: BP 178/85
--- NOTE | 2020-11-11 04:49 | NUR ---
ASSUMED PT CARE AT APPROX 1930. PT IS AWAKE AND ORIENTED X4. PT IS TRACING SR/ST ON THE TECHNICAL SUPPORT MANAGER. PT IS ON 10L OF O2/HFC TO KEEP spO2 >92%. PT IS SHORT OF AIR AND DESATS TO THE UPPER 80s WITH ACTIVITY. PT DENIES PAIN. NO ACUTE CHANGES THIS SHIFT. CALL LIGHT WITHIN REACH. HOURLY ROUNDING DONE FOR PT SAFETY.
--- NOTE | 2020-11-11 07:25 | NUR ---
CHANGE OF SHIFT BEDSIDE REPORT GIVEN PATIENT SEEN IN BED AND RESTING ASSUMED PATIENT CARE
[2020-11-11 08:00] VITALS: BP 110/64
[2020-11-11 11:59] LABS: ABSOLUTE BASOPHILS 0.1 thou/uL (0.0-0.2); ABSOLUTE MONOCYTES 0.9 thou/uL (0.0-1.2); ABSOLUTE NEUTROPHILS 9.9 thou/uL (1.6-8.1); EOSINOPHILS 0.1 %; HEMATOCRIT 21.6 % (37.0-47.0); HEMOGLOBIN 7.2 gm/dL (12.0-15.0); LYMPHOCYTES 8.4 %; MCHC 33.5 g/dL (28.0-37.0); MCV 95.5 fL (80.0-100.0); MONOCYTES 7.7 %; MPV 9.9 fl. (7.2-11.1); NUCLEATED RBCS 0 /100WBC; POLYS 82.8 %; RBC 2.26 mil/uL (4.20-5.00); RDW-CV 18.4 % (10.5-14.5); WBC 11.9 thou/uL (4.0-11.0)
[2020-11-11 12:00] VITALS: BP 137/69
[2020-11-11 12:01] LABS: PLATELET COUNT* 40 thou/uL (150-400)
[2020-11-11 12:07] LABS: ALBUMIN 2.9 g/dL (3.4-5.0); CALCIUM 8.5 mg/dL (8.5-10.1); CREATININE 0.8 mg/dL (0.6-1.3); POTASSIUM 4.4 mmol/L (3.5-5.1); TOTAL BILIRUBIN 0.4 mg/dL (<0.1-1.0); TOTAL PROTEIN 5.6 g/dL (6.4-8.2)
--- NOTE | 2020-11-11 14:09 | NUR ---
Anticipate dc in a few days. Pt continues to require 10L,continue to wean. Pt may benefit from HH at dc.
[2020-11-11 16:00] VITALS: BP 118/66
[2020-11-11 20:25] VITALS: BP 138/75
[2020-11-12] VITALS: BP 154/82
[2020-11-12 04:00] VITALS: BP 142/76
[2020-11-12 06:34] LABS: HEMATOCRIT 21.3 % (37.0-47.0); HEMOGLOBIN 7.4 gm/dL (12.0-15.0); MCH 32.9 pg (26.0-34.0); MCHC 34.7 g/dL (28.0-37.0); MCV 94.7 fL (80.0-100.0); MPV 9.2 fl. (7.2-11.1); NUCLEATED RBCS 0 /100WBC; RBC 2.25 mil/uL (4.20-5.00); RDW-CV 18.4 % (10.5-14.5); WBC 7.8 thou/uL (4.0-11.0)
--- NOTE | 2020-11-12 07:06 | NUR ---
PT SLEPT WELL OVERNIGHT. O2 5L NC SATS 92-96% USING EAR PROBE. LOOSE COUGH HEARD. HARSH DL PICC, ABX GIVEN ORDERED. PT UP AD ROWAN TO BSC TO VOID OVERNIGHT. ACCUCHECK 307, INSULIN GIVEN. PT HOPEFUL FOR DISCHARGE HOME SOON. AOX4, ABLE TO USE CALL LITE AND MAKE NEEDS KNOWN.
[2020-11-12 07:14] LABS: ALBUMIN 2.8 g/dL (3.4-5.0); ALKALINE PHOSPHATASE 84 U/L (46-116); ANION GAP < 0 mmol/L (7-16); BUN 24 mg/dL (7-18); CALCIUM 8.5 mg/dL (8.5-10.1); CHLORIDE 100 mmol/L (98-107); CO2 43 mmol/L (21-32); CREATININE 0.8 mg/dL (0.6-1.3); GLUCOSE 99 mg/dL (70-99); POTASSIUM 3.9 mmol/L (3.5-5.1); SGOT 15 U/L (15-37); SGPT 25 U/L (30-65); SODIUM 141 mmol/L (136-145); TOTAL BILIRUBIN 0.6 mg/dL (<0.1-1.0); TOTAL PROTEIN 5.7 g/dL (6.4-8.2)
[2020-11-12 07:48] LABS: PLATELET COUNT* 43 thou/uL (150-400)
[2020-11-12 08:58] VITALS: BP 134/67
[2020-11-12 11:08] LABS: ABSOLUTE LYMPHOCYTES 1.2 thou/uL (0.8-5.3); ABSOLUTE MONOCYTES 0.3 thou/uL (0.0-1.2); ABSOLUTE NEUTROPHILS 6.3 thou/uL (1.6-8.1); ATYPICAL LYMPHS 2 %; HYPOCHROMASIA 1+; METAMYELOCYTES 3 %; PLATELET ESTIMATE DECREASED
[2020-11-12 11:09] LABS: MACROCYTES Occasional; POLYCHROMASIA Occasional
[2020-11-12 11:10] LABS: ANISOCYTOSIS Occasional
[2020-11-12 12:00] VITALS: BP 173/72
[2020-11-12] MEDS ORDERED: LEVOFLOXACIN750 MG PO (12:52)
[2020-11-12] MEDS ORDERED: PROTONIX40 M2 PO (12:52)
[2020-11-12] MEDS ORDERED: DOXYCYCLINE 10100 MG PO (12:52)
[2020-11-12] MEDS ORDERED: PREDNISONE 10 M10 M1 PO (12:52)
--- NOTE | 2020-11-12 13:48 | NUR ---
Pt discharging to home today. Per , Pt will not need ivabx at dc. Ex ox to be completed, Pt at baseline wears 2L of o2, ex ox to be completed to check for change in o2 requirements. Pt declined HH.
[2020-11-12 14:16] VITALS: BP 134/67
--- NOTE | 2020-11-12 15:57 | NUR ---
Pt declined HH. Ex ox completed, Per Pt, she now needs 5L with activity and 2L at rest, Pt already has home o2 set up. CM to fax updated testing to [facility]. will bring portable tank for Pt to hi home.
--- NOTE | 2020-11-12 16:50 | NUR ---
PATIENT LEFT IN STABLE CONDITION VIA WHEELCHAIR TO HOME VIA PRIVATE VEHICLE. BROGUHT HOME OXYGEN TANK FOR TRANSPORT. ALL DISCHARGE INSTRUCTIONS EXPLAINED TO PATIENT AND SIGNED.
== END 2020-11-12 16:15 | disposition home or self-care (01) | DRG 871 ==
LOC: M.ERS 15:23 → M.ICU 16:27 → M.TBA-ER 16:27 → M.ICU 11-03 21:48 → M.2W 11-05 23:00
PROVIDERS: Emergency Medicine Emergency Medical Services; Family Medicine; Internal Medicine; Internal Medicine Critical Care Medicine; Internal Medicine Hematology & Oncology; Pediatrics; Personal Emergency Response Attendant; ADMIT Internal Medicine; ATTEND Internal Medicine
DX: A41.9 Sepsis, unspecified organism (principal); R65.21 Severe sepsis with septic shock; J96.22 Acute and chronic respiratory failure with hypercapnia; J15.6 Pneumonia due to other Gram-negative bacteria; D61.810 Antineoplastic chemotherapy induced pancytopenia; J96.21 Acute and chronic respiratory failure with hypoxia; C34.90 Malignant neoplasm of unspecified part of unspecified bronchus or lung; J44.1 Chronic obstructive pulmonary disease with (acute) exacerbation; E87.1 Hypo-osmolality and hyponatremia; J44.0 Chronic obstructive pulmonary disease with (acute) lower respiratory infection; D64.81 Anemia due to antineoplastic chemotherapy; E78.5 Hyperlipidemia, unspecified; E11.65 Type 2 diabetes mellitus with hyperglycemia; I10 Essential (primary) hypertension; J45.909 Unspecified asthma, uncomplicated; Z20.822 Contact with and (suspected) exposure to COVID-19; E87.70 Fluid overload, unspecified; M19.90 Unspecified osteoarthritis, unspecified site; Z92.21 Personal history of antineoplastic chemotherapy; Z88.1 Allergy status to other antibiotic agents; Z88.8 Allergy status to other drugs, medicaments and biological substances; Z87.891 Personal history of nicotine dependence; Z79.82 Long term (current) use of aspirin; Z79.899 Other long term (current) drug therapy

== ENCOUNTER 2021-03-17 18:10 | Emergency (ER) | payer MEDICARE, OTHER ==
[~2021-03-17] VITALS: Ht 167.6 cm; Wt 93.4 kg
[~2021-03-17 18:10] MED LIST changes: +DOXYCYCLINE 10100 MG PO; +LEVOFLOXACIN750 MG PO; +LISINOPRIL20 MG PO; +PROTONIX40 M2 PO
[2021-03-17 19:07] LABS: ABSOLUTE EOSINOPHILS 0.2 thou/uL (0.0-0.7); ABSOLUTE MONOCYTES 0.4 thou/uL (0.0-1.2); ABSOLUTE NEUTROPHILS 6.2 thou/uL (1.6-8.1); BASOPHILS 0.4 %; EOSINOPHILS 3.1 %; HEMATOCRIT 37.8 % (37.0-47.0); HEMOGLOBIN 12.2 gm/dL (12.0-15.0); LYMPHOCYTES 12.4 %; MCH 28.6 pg (26.0-34.0); MCHC 32.3 g/dL (28.0-37.0); MCV 88.5 fL (80.0-100.0); MONOCYTES 5.3 %; MPV 7.7 fl. (7.2-11.1); NUCLEATED RBCS 0 /100WBC; PLATELET COUNT* 213 thou/uL (150-400); POLYS 78.8 %; RBC 4.27 mil/uL (4.20-5.00); WBC 7.8 thou/uL (4.0-11.0)
[2021-03-17 19:15] LABS: CALCIUM 9.6 mg/dL (8.5-10.1); CREATININE 0.9 mg/dL (0.6-1.3); POTASSIUM 3.8 mmol/L (3.5-5.1)
[2021-03-17 19:20] LABS: ALBUMIN 3.4 g/dL (3.4-5.0); TOTAL BILIRUBIN 0.3 mg/dL (<0.1-1.0); TOTAL PROTEIN 7.9 g/dL (6.4-8.2)
[2021-03-17 20:01] LABS: URINE BILIRUBIN NEGATIVE (Negative); URINE BLOOD NEGATIVE (Negative); URINE CLARITY CLEAR; URINE COLOR YELLOW; URINE GLUCOSE-RANDOM NEGATIVE (Negative); URINE KETONES NEGATIVE (Negative); URINE LEUKOCYTES NEGATIVE (Negative); URINE NITRITE NEGATIVE (Negative); URINE PROTEIN 1+ (Negative); URINE UROBILINOGEN 0.2 E.U./dl (0.2-1.0)
[2021-03-17 20:45] VITALS: BP 159/84
--- NOTE | 2021-03-19 15:11 | EKG ---
[place] [address] ELECTROCARDIOGRAM REPORT Name: PEARL MONTERO Room: [facility]#: [id number] Admission: 03/17/21 Attend Phys: Discharge: 03/17/21 Date of : 54 Date of Service: 03/17/211849 Report #: [id number] THIS REPORT FOR: //name// [facility] ED Test Date: 2021-03-17 Test Time: 18:50:28 Pat Name: PEARL MONTERO Department: Room: Gender: Health Professor: : 1950 Requested By: Krish Prasad Order Number: [id number] MD: Josue Rodriguez Measurements Intervals [place] Rate: 107 P: 38 MT: 197 QRS: -26 QRSD: 98 T: 38 QT: 350 QTc: 467 Interpretive Statements Sinus tachycardia Probable left atrial enlargement Left axis deviation Anteroseptal infarct, age indeterminate, possible Lateral leads are also involved Compared to ECG 11/02/2020 16:05:44 Myocardial infarct finding now present ST (T wave) deviation now present Electronically Signed On 03-19-2021 15:11:09 [employer] by Josue Rodriguez [email or web address] <ELECTRONICALLY SIGNED> By: Josue Rodriguez MD, FACC 03/19/21 1511 49 49 Josue Rodriguez MD, FAC /EPI
== END 2021-03-17 20:48 | disposition home or self-care (01) ==
LOC: M.ERS 18:10
PROVIDERS: Physician Assistant
DX: R41.0 Disorientation, unspecified (principal); I10 Essential (primary) hypertension; J45.909 Unspecified asthma, uncomplicated; M19.90 Unspecified osteoarthritis, unspecified site; E11.9 Type 2 diabetes mellitus without complications; Z90.89 Acquired absence of other organs; Z79.82 Long term (current) use of aspirin; Z79.899 Other long term (current) drug therapy; Z88.0 Allergy status to penicillin; Z88.1 Allergy status to other antibiotic agents; Z87.891 Personal history of nicotine dependence

== ENCOUNTER → 2021-06-01 | Outpatient (CLI) | payer MEDICARE, OTHER ==
[2021-06-01 17:49] LABS: ABSOLUTE EOSINOPHILS 0.1 thou/uL (0.0-0.7); ABSOLUTE LYMPHOCYTES 0.7 thou/uL (0.8-5.3); ABSOLUTE MONOCYTES 0.4 thou/uL (0.0-1.2); ABSOLUTE NEUTROPHILS 5.3 thou/uL (1.6-8.1); BASOPHILS 0.6 %; EOSINOPHILS 1.3 %; HEMATOCRIT 35.7 % (37.0-47.0); HEMOGLOBIN 11.5 gm/dL (12.0-15.0); LYMPHOCYTES 10.9 %; MCH 28.8 pg (26.0-34.0); MCHC 32.3 g/dL (28.0-37.0); MCV 89.1 fL (80.0-100.0); MONOCYTES 5.8 %; MPV 7.4 fl. (7.2-11.1); NUCLEATED RBCS 0 /100WBC; PLATELET COUNT* 245 thou/uL (150-400); POLYS 81.4 %; RBC 4.01 mil/uL (4.20-5.00); WBC 6.5 thou/uL (4.0-11.0)
[2021-06-01 18:06] LABS: ALBUMIN 3.1 g/dL (3.4-5.0); CALCIUM 9.3 mg/dL (8.5-10.1); CREATININE 0.7 mg/dL (0.6-1.3); MAGNESIUM 1.5 mg/dL (1.8-2.4); TOTAL BILIRUBIN 0.3 mg/dL (<0.1-1.0)
== END ==
LOC: M.ULTRA 16:00
PROVIDERS: ATTEND Internal Medicine Critical Care Medicine
DX: J90 Pleural effusion, not elsewhere classified (principal); E87.79 Other fluid overload; R60.0 Localized edema; I70.0 Atherosclerosis of aorta

== ENCOUNTER → 2021-06-07 | Outpatient (CLI) | payer MEDICARE, OTHER ==
[2021-06-07 12:32] LABS: APTT 25.4 Seconds (25.0-31.3); INR 1.1; PROTIME 10.9 Seconds (9.20-11.50)
[2021-06-07 14:53] LABS: BF RBC 6326 /mm3; TOTAL CELL COUNT 1752 /mm3
[2021-06-07 14:57] LABS: TOTAL VOLUME 1700 ml
[2021-06-07 14:58] LABS: CLARITY CLOUDY
[2021-06-07 15:58] LABS: BF LYMPHOCYTES 80 %; BF MONOCYTES 15 %; BF POLYS 5 %; BF TISSUE 10 /100 WBC
[2021-06-07 15:59] LABS: SOURCE THORACENTESIS
== END | disposition home or self-care (01) ==
LOC: M.LAB 06-06 08:58
PROVIDERS: ATTEND Internal Medicine Critical Care Medicine
DX: J90 Pleural effusion, not elsewhere classified (principal); C34.91 Malignant neoplasm of unspecified part of right bronchus or lung; R06.02 Shortness of breath; I10 Essential (primary) hypertension; Z98.890 Other specified postprocedural states; Z79.899 Other long term (current) drug therapy; Z79.82 Long term (current) use of aspirin; Z88.0 Allergy status to penicillin